=== PATIENT | female | born 1970 | race Caucasian/White ===

== ENCOUNTER 2021-12-08 11:15 | Outpatient (REF) | payer OTHER, SELFPAY ==
--- OUTSIDE RECORDS SUMMARY | 2021-12-08 11:19 | XMS_ITS | Clinical Summary ---
:1970 Author Organization [employer] [place] [address] Care Team Providers Name Role Phone Kiara Hurley MD Unavailable Maksim Sanford MD Primary Care Provider [phone] Allergies Active Allergy Reactions Severity Noted Date Comments Amoxicillin Rash 06/10/2009 Amoxicillin Hives 08/17/2013 Paroxetine Hcl *Unknown, Other - Describe 2009 In Comment Field Sertraline *Unknown, Other - Describe 2009 In Comment Field Dulaglutide Other - Describe In 09/27/2020 Nausea, diarrhea. Comment Field Zolpidem Other - Describe In 10/09/2021 Headache , didn't feel Comment Field , peterson. Medications Medication Sig Dispensed Refills Start End Status Date Date blood sugar diagnostic Test 3 times per 400 Each 12/08/19 Active (Blood Glucose Test) day. 21 stripIndications: Type 2 diabetes mellitus without complication, with long-term current use of insulin (HC) BD Insulin Syringe For 100 Each 3 05/04/19 A ctive Ultra-Fine 1 mL 31 administering 22 gauge x insulin at home. 07/10Indications: Type 2 diabetes mellitus without complication, with long-term current use of insulin (HC) metFORMIN (GLUCOPHAGE Two oral daily 360 Tablet 1 08/02/19 Active XR) 500 mg for one week, 22 Extended-Release then two twice tabletIndications: daily. Type 2 diabetes mellitus without complication, with long-term current use of insulin (HC) atenoloL (TENORMIN) Take 1 Tablet 90 Tablet 3 09/13/19 Active 100 mg (100 mg) by 22 tabletIndications: mouth once Essential hypertension daily. lisinopriL (PRINIVIL; Take 1 Tablet 90 Tablet 3 10/05/19 Active ZESTRIL) 40 mg (40 mg) by mouth 22 tabletIndications: once daily. Essential hypertension ondansetron (ZOFRAN Place 1 Tablet 30 Tablet 0 10/09/19 Active ODT) 4 mg (4 mg) on the 22 disintegrating tongue every 8 tabletIndications: hours if needed Nausea and vomiting, for unspecified vomiting Nausea/Vomiting. type estradioL (Estrace) Take 1 Tablet 90 Tablet 3 10/25/19 Active 0.5 mg (0.5 mg) by 22 tabletIndications: Hot mouth once flushes, daily. perimenopausal medroxyPROGESTERone Take 1 Tablet (5 90 Tablet 3 10/25/19 Active (Provera) 5 mg mg) by mouth 22 tabletIndications: Hot once daily. flushes, perimenopausal insulin glargine, Inject 14 units 10 mL 1 11/08/19 Active U-100, (Lantus U-100 subcutaneous 22 Insulin) 100 unit/mL before bedtime. injectionIndications: Type 2 diabetes mellitus without complication, with long-term current use of insulin (HC) mirtazapine (REMERON Place 1 Tablet 30 Tablet 5 11/14/19 Active SOLTAB) 45 mg (45 mg) on the 22 disintegrating tongue at tabletIndications: bedtime. Depression, unspecified depression type polyethylene Drink 2L the day 4000 mL 0 11/17/19 Active glycol-electrolyte before the 22 (GOLYTELY) procedure and 2L [id number] -5.86 4 hours before gram the procedure. suspensionIndications: Encounter for screening colonoscopy polyethylene Drink 7 liters 8000 mL 0 11/25/19 Ac tive glycol-electrolyte the day before 22 (GOLYTELY) procedure (until [id number] -5.86 no liquid or gram solid stool is suspensionIndications: seen) and drink Encounter for 1 liter 6 hours screening colonoscopy before colonoscopy appointment Semglcaity,insulin INJECT 14 UNITS 0 11/09/19 Active glargine-yfgn, 100 UNDER THE SKIN 22 unit/mL injection AT BEDTIME OLANzapine (ZYPREXA) Take 1 Tablet 30 Tablet 1 12/05/19 Active 7.5 mg (7.5 mg) by 22 tabletIndications: mouth at Insomnia, unspecified bedtime. type LORazepam (ATIVAN) 1 One oral at 5 Tablet 0 10/10/1911/12/ Discontinued mg tabletIndications: bedtime. 2021 (*Medication Insomnia, idiopathic adjustment) estradiol-norethindron Apply 1 Patch on 8 Patch 12 10/20/1912/04/ Discontinued e, 0.05-0.14 mg, dry, clean, 2021 ( *Patient (COMBIPATCH) 0.05-0.14 hairless skin states no mg/24 hr every Saturday and patchIndications: . albino quinones/Jovani on Perimenopause, [facility]) mirtazapine (REMERON) Take 1 Tablet 30 Tablet 5 10/21/1911/25 0/ Discontinued 30 mg (30 mg) by mouth 2021 (*M edication tabletIndications: at bedtime. adjustment) Depression, Start after one unspecified depression week of three type 7.5mg tabs daily. OLANzapine (ZYPREXA) 5 0.5-1 tablet at 30 Tablet 0 11/02/19 0 11/13/ Discontinued mg tabletIndications: bedtime. 2021 (Reorder Insomnia, unspecified (E-cancel not type sent)) OLANzapine (ZYPREXA) 5 1 tablet p.o. 45 Tablet 2 11/14/19/ Discontinued mg tabletIndications: nightly for 1 2021 (Reorder Insomnia, unspecified week, then 1.5 (E-cancel not type tablets p.o. sent)) nightly Active Problems Problem Noted Date Menopause syndrome 12/07/2021 Insomnia, idiopathic 12/04/2021 Anxiety and depression 10/27/2020 Type 2 diabetes mellitus without complication, with lo ng-term current use 09/27/2020 of insulin Obesity 09/27/2020 Essential hypertension 09/27/2020 PCOS (polycystic ovarian syndrome) GERD (gastroesophageal reflux disease) Resolved Problems Problem Noted Date Resolved Date Anxiety 09/27/2020 10/27/2020 Idiopathic thrombocytopenic purpura 09/27/20200 08/2021 S/P right knee arthroscopy 01/09/2019 09/27/2020 Pes anserinus bursitis of right knee 12/30/201804/2020 Chronic pain of right knee 12/22/2018 09/27/2020 Degenerative tear of medial meniscus of right knee 9 09/27/2020 Right knee pain 09/19/2018 09/27/2020 Arthritis of right knee 09/19/2018 09/27/2020 Effusion, right knee 09/19/2018 09/27/2020 Chondromalacia, patella, right 09/19/2018 Encounters Date Type Specialty Care Team Description 12/07/2021 Travel 12/07/2021 Telephone Pan Hsu MD Appointment 12/06/2021 Nurse/Clinic Staff Testing ( HST Only Download) 12/05/2021 Nurse/Clinic Staff Testing ( HST Setup) Only 12/05/2021 Telemedicine [facility] Becky 12/05/2021 Procedure Only Pan Hsu MD Results (H OME SLEEP TEST/) 12/04/2021 Office Visit Maksim Sanford Follow Up MD Doris 12/04/2021 Office Visit Giovanna Medeiros [facility] th Intake; KIRSTEN De La Cruz Medication Daniela haynes 12/04/2021 Travel 12/02/2021 Travel 12/01/2021 Telephone Pan Hsu MD Appointment (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) 11/30/2021 Telemedicine Pan Hsu MD 11/30/2021 Travel 11/26/2021 Travel 11/24/2021 Procedure Only Ottoniel Robles MD (colonoscopy) 11/24/2021 Telephone Shoshana Elam PA 11/23/2021 Nurse Triage Ottoniel Robles Medication Markos Mckinley MD 11/23/2021 Travel 11/20/2021 Telephone Keri Cuenca Appointm ent MD Becky 11/16/2021 Telephone Ottoniel Robles MD 11/11/2021 - Emergency Kavon Neal Depression, unspecified depression type (Primary Dx); 11/12/2021 MD Belkis Insomnia, unspecified type Dionne Mosqueda MD 11/11/2021 Travel 11/08/2021 Phone Office Visit Maksim Sanford Covid -19 Positive MD Doris Result (/) 11/08/2021 Telephone Maksim Sanford Prior Autho rization MD Doris (insulin glargi ne, U-100, (Lantus U-100 Insulin) 100 un it/mL injection DENIE D/ EXCLUSION) 11/07/2021 [facility] Neema Santana [employer]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 has some questions- want to get tested f or menopause- slee p issue, emotiona l, sweating- spot on the labia that she would like to have ch ecked out.) 10/18/2021 Travel 10/16/2021 Travel 10/15/2021 Travel 10/13/2021 Emergency David Andrade Insomnia , unspecified type (Primary Dx); [place] Jordan Depression, uns pecified depression type; Anxiety 10/13/2021 Travel 10/13/2021 Telephone Maksim Sanford Questions ( Insomnia) MD Doris 10/11/2021 Telephone Maksim Sanford Medication Management MD Doris 10/11/2021 Telephone Maksim Sanford Questions ( sleeping) MD Doris 10/09/2021 Ancillary Procedure 10/09/2021 Office Visit Maksim Sanford ER Follow u p (PAWANDoris MD 10/01 and 10/08, insomnia, malai se, constipation, n ausea) 10/08/2021 Emergency Andrew Gaspar Insomnia, uns pecified type (Primary Dx); MD Mono Restlessness; Hyperglycemia; Dehydration; Nausea and vomi ting, unspecified vomiting type; Abnormal urinal ysis 10/08/2021 Travel 10/05/2021 Travel 10/04/2021 Office Visit Fernando Clinton Depression (i nsomnia) MD Samm 10/04/2021 Office Visit No Show 10/04/2021 Travel 10/04/2021 Nurse Triage Maksim Sanford Fatigue MD Doris 10/04/2021 Refill Maksim Sanford Refill Requ est MD Doris (Lisinopril 40m g) 10/01/2021 Emergency Esa Garnica Insomnia, unsp ecified type (Primary Dx); DO Jermaine Malaise; Constipation, u nspecified constipation type; At risk for obs tructive sleep apnea 10/01/2021 Travel 09/25/2021 Refill Maksim Sanford Refill Requ est MD Doris (Glipizide er 2 .5mg) 09/18/2021 Refill Maksim Sanford Refill Requ est; MD Doris LISINOPRIL 09/12/2021 Ancillary Procedure 09/12/2021 Office Visit Maksim Sanford Physical (5 0 year MD Doris old); Follow Up (Diabetes) 09/12/2021 Travel 09/10/2021 Travel from Last 3 Months Immunizations Name Administration Dates Next Due COVID-19 vaccine ([facility] 01/24/2021 30mcg/0.3mL) PF, MDV Influenza Virus, Unspecified 12/02/2013, 12/10/2012, 011 Influenza, IIV3 (Age >=3 years) 12/19/2011, 12/01/2009, 09/2008, 12/24/2007, 12/18/2006, 01/15/2006 Influenza, IIV4 12/04/2021, 11/19/2020, 11/04/2019, 12/04/2018, 11/27/2017, 12/14/2016, 12/16/2015 Influenza, IIV4 (=>6mos) MDV 12/08/2014 Pneumococcal Poly,23-Valent 02/05/2020, 12/23/2013 (Pneumovax) Pneumococcal conj 13-Valent (Prevnar 12/08/2014 13) Td (Age >=7 Years) 06/19/2017 Tdap 10/27/2020, 01/07/2008 Zoster (Shingrix-RZV, recombinant) 09/12/2021 Family History Medical History Relation Name Comments Diabetes type II Brother Diabetes type II Father Heart Disease Father valve replaced Diabetes type II Maternal Grandmother Cancer-colon Paternal Grandmother Diabetes type II Paternal Grandmother Cancer-colon Paternal Uncle Diabetes type II Sister Cancer-breast No Family History Cancer-ovarian No Family History Heart attack No Family History Relation Name Status Comments Brother Father Maternal Grandmother Paternal Grandmother Paternal Uncle Sister Social History Tobacco Use Types Packs/Day Years Used Date Never Smoker Smokeless Tobacco: Never Used Tobacco Cessation: Counseling Given: Yes Alcohol Use Standard Drinks/Week Comments Yes 0 (1 standard drink = 0.6 oz pure alcoho l) Few times a year Alcohol Habits Answer Date Recorded How often do you have a drink containing alcohol? Not asked How many drinks containing alcohol do you have on a Not aske d typical day when you are drinking? How often do you have six or more drinks on one Not asked occasion? Comment: Few times a year 08/17/2013 Sex Assigned at Date Recorded Not on file COVID-19 Exposure Response Date Recorded In the last 10 days, have you been in contact with No / Unsu re 12/07/2021 8:15 PM CDT someone who was confirmed or suspected to have Coronavirus/COVID-19? Obstetrics History Last Filed Vital Signs Vital Sign Reading Time Taken Comments Blood Pressure 124/81 12/04/2021 2:59 PM CDT Pulse 52 12/04/2021 2:59 PM CDT Temperature 36.7 ??C (98 ??F) 11/07/2021 8:02 AM CDT Respiratory Rate 18 11/12/2021 1:00 AM CDT Oxygen Saturation 98% 12/04/2021 2:59 PM CDT Inhaled Oxygen Concentration - - Weight 91.9 kg (202 lb 9.6 oz) 12/04/2021 2:59 PM CDT Height 165.1 cm (5' 5) 11/11/2021 6:27 PM CDT Body Mass Index 33.71 11/11/2021 6:27 PM CDT Plan of Treatment Upcoming Encounters Date Type Specialty Care Team Description 12/11/2021 Procedure Only Ottoniel Robles MD [address] [place] [phone] (Wo rk) 12/19/2021 Orders Only [facility] [employer] 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 [employer]er 12/28/2021 Nurse/Clinic Staff Only 12/29/2021 Nurse/Clinic Staff Only 01/22/2022 Telemedicine Pan Hsu MD [address] [phone] (Wo rk) 01/23/2022 Office Visit Giovanna Medeiros NP [address] [phone] (Wo rk) Health Maintenance Due Date Last Done Comments Hepatitis B series for Diabetes (1 08/02/1990 of 3 - Risk 3-dose series) Pap test for age 21-65 08/02/1992 Colonoscopy through age 75 08/02/2016 COVID-19 vaccine series (4 - 03/21/2021 01/24/2021, 021, Booster for Pfizer series) 06/09/2020 Zoster (shingles) series for age 0911/07/2021 09/12/2021 50+ (2 of 2) Mammogram for age 45-75 09/12/2022 09/12/2021 BMI (ht and wt on same day) for 10/09/2022 10/09/2021, 09/25, age 18+ 09/12/2021, Additional history exists Depression screening for age 12+ 12/07/2022 12/07/2021, 01/2022, 12/05/2021, Additional history exists Lipids for age 45-75 07/21/2026 07/21/2021 Tetanus booster 10/27/2030 10/27/2020, 06/19/2017, 01/07/2008 Pneumococcal series for age 19-64 08/02/2036 02/05/2020, , (3 - PPSV23 or PCV20) 12/23/2013 Tdap Completed 10/27/2020, 01/07/2008 Hepatitis C screening for age Completed 11/01/2021 18-79 Influenza for age 50-64 Completed 12/04/2021, 11/19/2020, 11/04/2019, Additional history exists Procedures Procedure Name Priority Date/Time Associated Diagnosis Comme nts HOME SLEEP TEST TYPE Routine 12/05/2021 2:06 PM CECIL (obstructi ve 3 PORTABLE CDT sleep apnea) HEMOGLOBIN A1C Routine 11/01/2021 7:58 AM Type 2 diabetes Resu lts for this CDT mellitus without procedure a re in complication, with the resul ts long-term current section. use of insulin (HC) TSH WITH REFLEX Routine 11/01/2021 7:58 AM Fatigue, unspecifie d Results for this CDT type procedure are i n the results section. ANTI HCV Routine 11/01/2021 7:58 AM Need for hepatitis C R esults for this CDT screening test procedure are in the results section. US ABDOMEN LIMITED Routine 10/19/2021 9:28 AM Nausea Res ults for this RUQ CDT procedure are i n the results section. CT HEAD BRAIN WO MONIKA 10/09/2021 12:43 Nausea Results for this PM CDT procedure are i n the results section. COVID 19 STAT 10/08/2021 9:34 PM Results f or this CDT procedure are i n the results section. COVID 19 COLLECTION STAT 10/08/2021 9:34 PM Re sults for this CDT procedure are i n the results section. URINE CULTURE Today 10/08/2021 9:25 PM Abnormal urinalysis R esults for this CDT procedure are i n the results section. URINALYSIS STAT 10/08/2021 9:25 PM Results f or this MICROSCOPIC CDT procedure are i n the results section. URINE STAT 10/08/2021 9:25 PM Result s for this CDT procedure are i n the results section. UA W/ SEDIMENT EXAM STAT 10/08/2021 9:25 PM Re sults for this REFLEXED PER CRITERIA CDT proced ure are in the results section. VITAMIN B12 MONIKA 10/08/2021 9:02 PM Results f or this CDT procedure are i n the results section. MAGNESIUM MONIKA 10/08/2021 9:02 PM Results f or this CDT procedure are i n the results section. CBC WITH AUTO STAT 10/08/2021 9:02 PM Results for this DIFFERENTIAL CDT procedure are i n the results section. LIPASE STAT 10/08/2021 9:02 PM Results f or this CDT procedure are i n the results section. HEPATIC FUNCTION STAT 10/08/2021 9:02 PM Resul ts for this PANEL CDT procedure are i n the results section. BASIC METABOLIC PANEL STAT 10/08/2021 9:02 PM Results for this CDT procedure are i n the results section. CBC WITH AUTO STAT 10/08/2021 9:02 PM Results for this DIFFERENTIAL CDT procedure are i n the results section. EKG 12 LEAD STAT 10/08/2021 8:47 PM Results f or this CDT procedure are i n the results section. CBC WITH AUTO STAT 10/01/2021 6:46 AM Results for this DIFFERENTIAL CDT procedure are i n the results section. COMP METABOLIC PANEL STAT 10/01/2021 6:46 AM R esults for this CDT procedure are i n the results section. CBC WITH AUTO STAT 10/01/2021 6:46 AM Results for this DIFFERENTIAL CDT procedure are i n the results section. TSH STAT 10/01/2021 6:46 AM Results f or this CDT procedure are i n the results section. EKG 12 LEAD STAT 10/01/2021 6:33 AM Results f or this CDT procedure are i n the results section. GLUCOSE METER Routine 10/01/2021 6:26 AM Results for this CDT procedure are i n the results section. XR MAMMO BILAT Routine 09/12/2021 10:47 Visit for screening Re sults for this SCREENING AM CDT mammogram procedure are i n the results section. from Last 3 Months Results TSH WITH REFLEX (11/01/2021 7:58 AM CDT) P athologist Signature TSH 3.39 0.35 - 4.94 11/01/2021 [facility] uIU/mL 7:14 PM CDT LABORATORY-CENTR AL LABORATORY Specimen Anatomical Collection Method / Collection Time Recei robert Time (Source) Location / Volume Laterality Blood BLOOD SPECIMEN / Venipuncture / 11/01/2021 7:58 2021 8:00 Unknown Unknown AM CDT AM CDT Narrative [facility] LABORATORY-CENTRAL LABORAT ORY - 11/01/2021 7:14 PM CDT In Adults, TSH values between 5.00 and 10.00 uIU/ml do not necessarily indicate the presence of Hyp othyroidism. Correlation with clinical findings such as presence of goiter and/or Thyroperoxidase (TPO) Antibody ma y be helpful. For more information please refer to ESTEBAN 20 ; 291: [id number]. Maksim Sanford MD CHEMISTRY Performing Organization Address City/[facility]/ZIP Code Phon e Number [facility] [employer] [address] [place] [id number] LABORATORY-CENTRAL 2000 LABORATORY ANTI HCV (11/01/2021 7:58 AM CDT) [facility] Method Time Signature HEPATITIS C Non-Reacti Non-Reacti 11/01/2021 [facility] ANTIBODY ve ve 7:16 PM CDT LABORATORY-[facility] TRAL LABORATORY Comment: Antibodies to HCV not detected; does not exclude the possibility of exposure to HCV. Specimen Anatomical Collection Method / Collection Time Recei robert Time (Source) Location / Volume Laterality Blood BLOOD SPECIMEN / Venipuncture / 11/01/2021 7:58 2021 8:00 Unknown Unknown AM CDT AM CDT Maksim Sanford MD SEND OUTS Performing Organization Address City/[facility] Phon e Number [facility] [address] [place] [id number] LABORATORY-CENTRAL 2000 LABORATORY HEMOGLOBIN A1C MONITORING (POCT) (11/01/2021 7:58 AM CDT) P athologist Signature HEMOGLOBIN A1C 6.0 <=6.4 % 11/01/2021 [facility] MONITORING 8:31 AM CDT [facility] (POCT[facility] Specimen Anatomical Collection Method / Collection Time Recei robert Time (Source) Location / Volume Laterality Blood BLOOD SPECIMEN / Venipuncture / 11/01/2021 7:58 2021 8:00 Unknown Unknown AM CDT AM CDT Narrative [facility] - 8:31 AM CDT ? (<=6.9%) ? Indicates good control ? (7.0% to 7.9%) ? Indicates fa ir control ? (>=8.0%) ? Indicates poor control ?? NOTE: ??These thresholds are guideli claudy and ?individual targets may va ry. Falsely low levels may be seen with: Recent Transfusion, Recent Significant B lood Loss, Hemolytic Diseases, or Falsely elevated levels may be seen with : Untreated Anemias, Splenectomy ? Maksim Sanford MD CHEMISTRY Performing Organization Address City/State/ZIP Code Phon e Number [facility] [address] [place], [place] [address] US ABDOMEN LIMITED RUQ (10/19/2021 9:28 AM CDT) Anatomical Region Laterality Modality Abdomen, LIVER Ultrasound Specimen (Source) Anatomical Collection Method Collection Time Re ceived Time Location / / Volume Laterality 10/19/2021 3:34 PM CDT Impressions 10/19/2021 3:34 PM CDT Improved appearance of the liver compared to the prior study with decreased hepatic steatosis. Normal ultrasound of the gallbladder. Tiny punctate stones within the right ki dney are likely similar. No hydronephrosis. Incidental right renal cyst. Dictated by Evan Love MD @ Oct 19 ??3:34PM (Electronically Signed) ?? Narrative 10/19/2021 3:34 PM CDT For Patients: ??As a result of the 21st Century Cures Act, medical imaging exams and procedure report s are released immediately into your [facility] medical record. ??You may view this report before your referring provider. ??If you have questions, please contact your health care provider. INDICATION: Nausea COMPARISON: CT 09/04/2020 TECHNIQUE: Real time muñoz scale imaging and color D oppler analysis was performed of the right upper quadrant. FINDINGS: The patient`s liver is of normal size an d has uniform echogenicity. ??There is a normal appearance of the hepatic IVC and proximal abdominal aorta. There is no evidence of ascites. The gallbladder is of normal size and there is no evidence of intraluminal stones or sludge. ??The gallbladder wall measures 1.5 mm in thickness. ??The common bile duct is of normal size and measures 6.5 mm in diameter at t he level of the john hepatis. ??The nye creas appears normal. Tiny punctate stones are suspected within the right kidney, as before. Simple cyst within the right kidney is unchanged measuring 2.1 x 2.1 x 1.8 cm. The right kidney measures 11.7 cm in length. ?? Procedure Note Evan Love MD - 10/19/2021For matting of this note might be different from the original. For Patients: As a result of the ntury Cures Act, medical imaging exams and procedure reports are released immediately into your electronic medical record. You may view this report before your referring provider. If you have questions, please contact [facility] care provider. INDICATION: Nausea COMPARISON: CT 09/04/2020 TECHNIQUE: Real time muñoz scale imaging and color D oppler analysis was performed of the right upper quadrant. FINDINGS: The patient`s liver is of normal size an d has uniform echogenicity. There is a normal appearance of the hepatic IVC and proximal abdominal aorta. There is no evidence of ascites. The gallbladder is of normal size and there is no evidence of intraluminal sto claudy or sludge. The gallbladder wall measures 1.5 mm in thickness. The common bile duct is of normal size and measures 6.5 mm in diameter at the level of the john hepatis. The pancreas appears normal. Tiny punctate s tones are suspected within the right kidney, as before. Simple cyst within the right kidney is unchanged measuring 2.1 x 2.1 x 1.8 cm. The right kidney measures 11.7 cm in length. IMPRESSION: Improved appearance of the liver compare d to the prior study with decreased hepatic steatosis. Normal ultrasound of the gallbladder. Tiny punctate stones within the right ki dney are likely similar. No hydronephrosis. Incidental right renal cyst. Dictated by Evan Love MD @ Oct 19 2 022 3:34PM (Electronically Signed) Maksim Sanford MD US CT HEAD BRAIN WO (10/09/2021 12:43 PM CDT) Anatomical Region Laterality Modality HEAD, BRAIN Computed Tomography Specimen (Source) Anatomical Collection Method Collection Time Re ceived Time Location / / Volume Laterality 10/09/2021 1:33 PM CDT Impressions 10/09/2021 1:[address] Negative head CT. Please note that all CT scans at this [facility] use dose modulation, iterative reconstruction, and/or weight-based dosing when appropriate to reduce radiation dose to as low as reasonably achievable. Dictated by Evan Love MD @ Oct 09 2 022 ??1:33PM (Electronically Signed) ?? Narrative 10/09/2021 1:33 PM CDT For Patients: ??As a result of the Cures Act, medical imaging exams and procedure report s are released immediately into your [facility] medical record. ??You may view this report before your referring provider. ??If you have questions, please contact your health care provider. INDICATION: Nausea COMPARISON: none TECHNIQUE: A CT volumetric acquisition was performe d of the brain without IV contrast. Please note that all CT scans at this [facility] use dose modulation, iterative reconstruction, and/or weight-based dosing when appropriate to reduce radiation dose to as low as reasonably achievable. FINDINGS: The CT images reveal a normal appearance of the cerebral ventricles and basal cisterns. There is no evidence of intracranial hemorrhage, tissue infarction or mass effect. The mastoid air cells and middl e ear cavities are clear. The calvarium appears intact. There is normal aeration of the visualized paranasal sinuses. Procedure Note Evan Love MD - 10/09/2021For matting of this note might be different from the original. For Patients: As a result of the [facility] Cures Act, medical imaging exams and procedure reports are released immediately into your electronic medical record. You may view this report before your referring provider. If you have questions, please contact yo health care provider. INDICATION: Nausea COMPARISON: none TECHNIQUE: A CT volumetric acquisition was performe d of the brain without IV contrast. Please note that all CT scans at this [facility] use dose modulation, iterative reconstruction, and/or weight-based dosing when appropriate to reduce radiation dose to as low as reasonably achievable. FINDINGS: The CT images reveal a normal appearance of the cerebral ventricles and basal cisterns. There is no evidence of intracranial hemorrhage, tissue infarction or mass effect. The mastoid air cells and middle ear cavities are clear. The calvarium appears intact. There is normal aeration of the visualized paranasal sinuses. IMPRESSION: Negative head CT. Please note that all CT scans at this [facility] use dose modulation, iterative reconstruction, and/or weight-based dosing when appropriate to reduce radiation dose to as low as reasonably achievable. Dictated by Evan Love MD @ Oct 09 2 022 1:33PM (Electronically Signed) Maksim Sanford MD CT COVID 19 (10/08/2021 9:34 PM CDT) [facility] trivago Method Time Signature COVID 19 Not detected Not detected 10/08/2021 [facility] 9[facility]56 PM CDT [facility] Specimen Anatomical Location / Collection Method Collection Chris e Received Time (Source) Laterality / Volume Other SPECIMEN FROM Non-Blood / 10/08/2021 9:34 10/08/2021 9:34 NASOPHARYNGEAL Unknown PM CDT PM CDT STRUCTURE / Unknown Narrative [facility] - 9:56 PM CDT This test has been authorized by FDA und er an Emergency Use Authorization (EUA). This test is only authorized for the duration of time the declaration that circumstances exist justifying the authorization of th e emergency use of in vitro diagnostic tests for detection of SARS-CoV-2 virus and/or diagnosis of COVID-19 infection under section 564(b)(1) of the Act, 21 U.S.C. 360bbb-3(b) (1), unless the authorization is terminated or revoked sooner. Andrew Gaspar MD MICROBIOLOGY Performing Organization Address City/State/ZIP Code Phon e Number [facility] [address] [place] [address] COVID 19 COLLECTION (10/08/2021 9:34 PM CDT) [facility] trivago Method Time Signature TESTING [facility] 10/08/2021 [facility] [facility] Laboratory 9:35 PM CDT [facility] Comment: Specimen submitted to [facility] for testing. Specimen Anatomical Location / Collection Method Collection Chris e Received Time (Source) Laterality / Volume Other SPECIMEN FROM Non-Blood / 10/08/2021 9:34 10/08/2021 9:34 NASOPHARYNGEAL Unknown PM CDT PM CDT STRUCTURE / Unknown Andrew Gaspar MD SEND OUTS Performing Organization Address City/[facility]/ZIP Code Phon e Number [facility] [address] [place] [address] (ABNORMAL) URINALYSIS MICROSCOPIC (10/08/2021 9:25 PM CDT) [facility] Signature RBC 0-2 0-2, None 10/08/2021 [place] Seen /HPF 9:39 PM [facility] WBC 6-10 (A) 0-2, 3-5, 10/08/2021 [place] None Seen 9:39 PM CDT [facility] /HPF LABORATORY BACTERIA Moderate (A) None 10/08/2021 [place] Seen, 9:39 PM [facility]T [facility] Rare, Few LABORATORY Bacteria/ HPF EPITHELIAL Many (A) None 10/08/2021 [facility], Few 9:[address] [facility] Epi/HPF LABORATORY Mucus Present 10/08/2021 [place] 9:39 PM [facility] LABOR[facility]ORY WHITE CELL Present (A) (none) 10/08/2021 [facility]:[address] [facility] Specimen Anatomical Collection Method Collection Time Receive d Time (Source) Location / / Volume Laterality Urine URINE SPECIMEN / Non-Blood / 10/08/2021 9:25 PM 10/08 9:30 Unknown Unknown CDT PM CDT Andrew Gaspar MD URINE Performing Organization Address City/[facility]/ZIP Code Phon e Number [facility] [address] [place] [address] URINE CULTURE (10/08/2021 9:25 PM CDT) athologist Signature CULTURE No growth 10/10/2021 [facility] (<1,000 7:37 AM CDT LABORATORY-CENT CFU/mL) [facility] Specimen Anatomical Collection Method Collection Time Receive d Time (Source) Location / / Volume Laterality Urine URINE SPECIMEN / Non-Blood / 10/08/2021 9:25 PM 10/08 9:30 Unknown Unknown CDT PM CDT Maksim Sanford MD MICROBIOLOGY Performing Organization Address City/State/ZIP Code Phon e Number [employer] [address] [place] [address] LABORATORY-CENTRAL 2000 LABORATORY (ABNORMAL) UA W/ SEDIMENT EXAM REFLEXED PER CRITERIA (10/08/2021 9:25 PM CDT) [facility] Method Time Signature COLOR Yellow Yellow Color 10/08/2021 [place] 9:34 PM [facility] CLARITY Clear Clear 10/08/2021 [place] Clarity 9:34 PM [facility] SPECIFIC 1.010 1.010, 10/08/2021 [place] GRAVITY,URINE 1.015, 9:34 PM [facility] 1.020, 1.025 LABORATORY PH,URINE 6.5 6.0, 7.0, 10/08/2021 [place] 8.0, 5.5, 9:34 PM [facility] 6.5, 7.5, LABORATORY 8.5 UROBILINOGEN, Normal Normal EU/dl 10/08/2021 [place] QUALITATIVE 9:34 PM [facility] PROTEIN, Negative Negative 10/08/2021 [place] URINE mg/dL 9:34 PM [facility] GLUCOSE, Negative Negative 10/08/2021 [place] URINE mg/dL 9:34 PM [facility] KETONES,URINE Negative Negative 10/08/2021 [place] mg/dL 9:34 PM [facility] BILIRUBIN,URI Negative Negative 10/08/2021 [place] NE 9:34 PM [facility] OCCULT Negative Negative 10/08/2021 [place] BLOOD,URINE 9:34 PM [facility] NITRITE Negative Negative 10/08/2021 [place] 9:34 PM [facility] LEUKOCYTE Small (A) Negative 10/08/2021 [place] ESTERASE 9:34 PM [facility] Specimen Anatomical Collection Method Collection Time Receive d Time (Source) Location / / Volume Laterality Urine URINE SPECIMEN / Non-Blood / 10/08/2021 9:25 PM 10/08 9:30 Unknown Unknown CDT PM CDT Andrew Gaspar MD URINE Performing Organization Address City/State/ZIP Code Phon e Number [facility] [address] [place] [address] URINE (10/08/2021 9:25 PM CDT) Analysis Performed At [facility] logist Time Signature ,URIN Negative Negative 10/08/2021 [place] E 9:34 PM [facility] Specimen Anatomical Collection Method Collection Time Receive d Time (Source) Location / / Volume Laterality Urine URINE SPECIMEN / Non-Blood / 10/08/2021 9:25 PM 10/08 9:30 Unknown Unknown CDT PM CDT Andrew Gaspar MD URINE Performing Organization Address City/State/ZIP Code Phon e Number [facility] [address] [place] [address] (ABNORMAL) CBC WITH AUTO DIFFERENTIAL (10/08/2021 9:02 PM CDT)Only the most recent of2 resultswithin the time period is included. [facility] gist Method Time Signature WHITE BLOOD 13.0 (H) 4.5 - 10/08/2021 [place] COUNT 11.0 9:17 PM [facility] thou/cu LABORATORY mm RED BLOOD COUNT 4.72 4.00 - 10/08/2021 [place] 5.20 9:17 PM [facility] mil/cu mm LABORATORY HEMOGLOBIN 14.9 12.0 - 10/08/2021 [place] 16.0 g/dL 9:17 PM [facility] LABORATORY HEMATOCRIT 45.1 33.0 - 10/08/2021 [place] 51.0 % 9:17 PM [facility] LABORATORY MCV 96 80 - 100 10/08/2021 [place] fL 9:17 PM [facility] LABORATORY MCH 31.6 26.0 - 10/08/2021 [place] 34.0 pg 9:17 PM [facility] LAB[facility]ORY MCHC 33.0 32.0 - 10/08/2021 [place] 36.0 g/dL 9:17 PM [facility] LABORATORY RDW 13.9 11.5 - 10/08/2021 [place] 15.5 % 9:17 PM [facility] LABORATORY PLATELET COUNT 275 140 - 440 10/08/2021 [place] thou/cu 9:17 PM [facility] mm LABORATORY MPV 11.0 6.5 - 10/08/2021 [place] 11.0 fL 9:17 PM [facility] LABORATORY % NEUT 48.3 % 10/08/2021 [place] 9:17 PM [facility] LABORATORY % LYMPH 36.6 % 10/08/2021 [place] 9:17 PM [facility] LABORATORY % MONO 9.6 % 10/08/2021 [place] 9:17 PM [facility]ORY % EOS 4.8 % 10/08/2021 [place] 9:17 PM [facility] LAB[facility]ORY % BASO 0.7 % 10/08/2021 [place] 9:17 PM [facility] LABORATORY ABSOLUTE 6.3 1.7 - 7.0 10/08/2021 [place] NEUTROPHILS thou/cu 9:17 PM [facility] mm LABORATORY ABSOLUTE 4.8 (H) 0.9 - 2.9 10/08/2021 [place] LYMPHOCYTES thou/cu 9:17 PM [facility] mm LABORATORY ABSOLUTE 1.3 (H) <0.9 10/08/2021 [place] MONOCYTES thou/cu 9:17 PM [facility] mm LABORATORY ABSOLUTE 0.6 (H) <0.5 10/08/2021 [place] EOSINOPHILS thou/cu 9:17 PM [facility] LABORATORY ABSOLUTE 0.1 <0.3 10/08/2021 [place] BASOPHILS thou/cu 9:17 PM [facility] mm LABORATORY Specimen Anatomical Collection Method / Collection Time Recei robert Time (Source) Location / Volume Laterality Blood BLOOD SPECIMEN / Venipuncture / 10/08/2021 9:02 2021 9:05 Unknown Unknown PM CDT PM CDT Andrew Gaspar MD HEMATOLOGY Performing Organization Address City/State/ZIP Code Phon e Number [facility] [address] [place] [address] MAGNESIUM (10/08/2021 9:02 PM CDT) P athologist Signature MAGNESIUM 1.8 1.6 - 2.6 10/08/2021 [place] mg/dL 9:27 PM [facility] Specimen Anatomical Collection Method / Collection Time Recei robert Time (Source) Location / Volume Laterality Blood BLOOD SPECIMEN / Venipuncture / 10/08/2021 9:02 2021 9:05 Unknown Unknown PM CDT PM CDT Andrew Gaspar MD CHEMISTRY Performing Organization Address City/[facility]/ZIP Code Phon e Number [facility] [address] [place] [address] LIPASE (10/08/2021 9:02 PM CDT) athologist Signature LIPASE 38.8 8.0 - 78.0 10/08/2021 [place] IU/L 9:28 PM CDT [facility] Specimen Anatomical Collection Method / Collection Time Recei robert Time (Source) Location / Volume Laterality Blood BLOOD SPECIMEN / Venipuncture / 10/08/2021 9:02 2021 9:05 Unknown Unknown PM CDT PM CDT Andrew Gaspar MD CHEMISTRY Performing Organization Address City/[facility]/ZIP Code Phon e Number [facility] [address] [place] [address] VITAMIN B12 (10/08/2021 9:02 PM CDT) athologist Signature VITAMIN B12 805 180 - 914 10/16/2021 [facility] pg/mL 11:38 AM CDT LABORATORY-[facility] Specimen Anatomical Collection Method / Collection Time Recei robert Time (Source) Location / Volume Laterality Blood BLOOD SPECIMEN / Venipuncture / 10/08/2021 9:02 2021 9:05 Unknown Unknown PM CDT PM CDT David DERAS CHEMISTRY Performing Organization Address City/State/ZIP Code Phon e Number [facility] [address] [place] [address] LABORATORY-CENTRAL 2000 LABORATORY HEPATIC FUNCTION PANEL (10/08/2021 9:02 PM CDT) athologist Signature ALBUMIN 3.9 3.5 - 5.2 10/08/2021 [place] g/dL 9:27 PM CDT [facility] PROTEIN,TOTAL 7.2 6.0 - 8.0 10/08/2021 [place] g/dL 9:27 PM [facility] LABORATORY GLOBULIN 3.3 2.0 - 3.7 10/08/2021 [place] g/dL 9:27 PM [facility] LAB[facility]ORY A/G RATIO 1.2 1.0 - 2.0 10/08/2021 [place] 9:27 PM [facility] LABORATORY BILIRUBIN,TOTAL 0.5 0.2 - 1.2 10/08/2021 [place] mg/dL 9:27 PM [facility] LAB[facility]ORY BILIRUBIN,DIRECT 0.2 0.1 - 0.5 10/08/2021 [place] mg/dL 9:27 PM [facility] LAB[facility] BILIRUBIN,INDIRE 0.3 0.2 - 0.8 10/08/[address] [place] [address] mg/dL 9:27 PM [facility] ALK PHOSPHATASE 73 50 - 136 10/08/2021 [place] IU/L 9:27 PM [facility] ALT (SGPT) 24 8 - 45 10/08/2021 [place] IU/L 9:27 PM [facility] AST (SGOT) 19 2 - 40 10/08/2021 [place] IU/L 9:27 PM [facility] Specimen Anatomical Collection Method / Collection Time Recei robert Time (Source) Location / Volume Laterality Blood BLOOD SPECIMEN / Venipuncture / 10/08/2021 9:02 2021 9:05 Unknown Unknown PM CDT PM CDT Andrew Gaspar MD CHEMISTRY Performing Organization Address City/State/ZIP Code Phon e Number [facility] [address] [place] [address] (ABNORMAL) BASIC METABOLIC PANEL (10/08/2021 9:02 PM CDT) Analysis Performed At Patho logist Time Signature SODIUM 140 135 - 145 10/08/2021 [place] mmol/L 9:25 PM [facility] POTASSIUM 3.7 3.5 - 5.0 10/08/2021 [place] mmol/L 9:25 PM [facility] CHLORIDE 104 98 - 110 10/08/2021 [place] mmol/L 9:25 PM [facility] CO2,TOTAL 24 21 - 31 10/08/2021 [place] mmol/L 9:25 PM [facility] ANION GAP 12 5 - 18 10/08/2021 [place] 9:25 PM [facility]ORY GLUCOSE 167 (H) 65 - 100 10/08/2021 [place] mg/dL 9:25 PM [facility] CALCIUM 9.4 8.5 - 10.5 10/08/2021 [place] mg/dL 9:25 PM [facility] BUN 16 8 - 25 10/08/2021 [place] mg/dL 9:25 PM [facility] CREATININE 0.82 0.57 - 10/08/2021 [place] 1.11 mg/dL 9:25 PM [facility] LAB[facility]ATORY BUN/CREAT RATIO 20 10 - 20 [facility] eGFR 87 (L) >90 10/08/2021 [place] mL/min/1.7 9:25 PM [facility] 3m2 LABORATORY Comment: As of 2021, eGFR is calcu lated by the CKD-EPI creatinine equation without race adjustment. eGFR can be inf luenced by muscle mass, exercise, and diet. The reported eGFR is an estimation only and is only applicable if the renal function is stable. Specimen Anatomical Collection Method / Collection Time Recei robert Time (Source) Location / Volume Laterality Blood BLOOD SPECIMEN / Venipuncture / 10/08/2021 9:02 2021 9:05 Unknown Unknown PM CDT PM CDT Andrew Gaspar MD CHEMISTRY Performing Organization Address City/State/ZIP Code Phon e Number [facility] [address] [place] [address] EKG 12 LEAD (10/08/2021 8:47 PM CDT)Only the most recent of2 resultswithin the time period is included. Component Value Ref Range Test Analysis Performed Pathologis t Method Time At Signature Interpretation Normal sinus rhythm BEYON D NOW Left axis deviation Inferior infarct (cited on or before 01-OCT-2021) Cannot rule out Anterior infarct (cited on or before 2021) Abnormal ECG When compared with ECG of 01-OCT-2021 06:33, No significant change was found Ventricular Rate 68 BPM BEYOND NOW Atrial Rate 68 BPM BEYOND NOW P-R Interval 172 ms BEYOND NOW QRS Duration 82 ms BEYOND NOW QT 416 ms BEYOND NOW QTc 442 ms BEYOND NOW P [place] 41 degrees BEYOND NOW R Towson -35 degrees BEYOND NOW T [place] 14 degrees BEYOND NOW Specimen Anatomical Collection Method Collection Time Receive d Time (Source) Location / / Volume Laterality 10/08/2021 8:47 PM 5:44 CDT AM CDT Andrew Gaspar MD EKG ORD Performing Organization Address [facility] Phon e Number BEYOND NOW [place], [place] TSH (10/01/2021 6:46 AM CDT) athologist Signature TSH 2.56 0.35 - 4.94 10/01/2021 [place] uIU/mL 7:30 AM T [facility] Specimen Anatomical Collection Method / Collection Time Recei robert Time (Source) Location / Volume Laterality Blood BLOOD SPECIMEN / Venipuncture / 10/01/2021 6:46 2021 6:49 Unknown Unknown AM CDT AM CDT Narrative [facility] - 7:30 AM CDT In Adults, TSH values between 5.00 and 10.00 uIU/ml do not necessarily indicate the presence of Hyp othyroidism. Correlation with clinical findings such as presence of goiter and/or Thyroperoxidase (TPO) Antibody ma y be helpful. For more information please refer to ESTEBAN 20 ; [phone]: [phone]. Esa Garnica DO CHEMISTRY Performing Organization Address City/[facility] Phon e Number [facility] [address] [place] [address] (ABNORMAL) COMP METABOLIC PANEL (10/01/2021 6:46 AM CDT) [facility] Method Time Signature SODIUM 142 135 - 145 10/01/2021 [place] mmol/L 7:10 AM T [facility] POTASSIUM 4.0 3.5 - 5.0 10/01/2021 [place] mmol/L 7:[address] [facility]ORY CHLORIDE 107 98 - 110 10/01/2021 [place] mmol/L 7:10 AM [facility] CO2,TOTAL 22 21 - 31 10/01/2021 [place] mmol/L 7:10 AM [facility] ANION GAP 13 5 - 18 10/01/2021 [place] 7:10 AM [facility] GLUCOSE 167 (H) 65 - 100 10/01/2021 [place] mg/dL 7:10 AM [facility] CALCIUM 9.3 8.5 - 10.5 10/01/2021 [place] mg/dL 7:10 AM [facility] BUN 15 8 - 25 10/01/2021 [place] mg/dL 7:10 AM [facility] CREATININE 0.74 0.57 - 10/01/2021 [place] 1.11 mg/dL 7:10 AM [facility] BUN/CREAT RATIO 20 10 - 20 10/01/2021 [place] 7:10 AM [facility] ALBUMIN 3.9 3.5 - 5.2 10/01/2021 [place] g/dL 7:10 AM [facility] PROTEIN,TOTAL 7.1 6.0 - 8.0 10/01/2021 [place] g/dL 7:10 AM [facility] GLOBULIN 3.2 2.0 - 3.7 10/01/2021 [place] g/dL 7:10 AM [facility] A/G RATIO 1.2 1.0 - 2.0 10/01/2021 [place] 7:10 AM [facility] BILIRUBIN,TOTAL 1.0 0.2 - 1.2 10/01/2021 [place] mg/dL 7:10 AM [facility] ALK PHOSPHATASE 61 50 - 136 10/01/2021 [place] IU/L 7:10 AM [facility] ALT (SGPT) 23 8 - 45 10/01/2021 [place] IU/L 7:10 AM [facility] AST (SGOT) 17 2 - 40 10/01/2021 [place] IU/L 7:10 AM [facility] eGFR >90 >90 10/01/2021 [place] mL/min/1.7 7:10 AM [facility] 3m2 LABORATORY Comment: As of 2021, eGFR is calcu lated by the CKD-EPI creatinine equation without race adjustment. eGFR can be inf luenced by muscle mass, exercise, and diet. The reported eGFR is an estimation only and is only applicable if the renal function is stable. Specimen Anatomical Collection Method / Collection Time Recei robert Time (Source) Location / Volume Laterality Blood BLOOD SPECIMEN / Venipuncture / 10/01/2021 6:46 2021 6:49 Unknown Unknown AM CDT AM CDT Esa Jjgabe Garnica DO CHEMISTRY Performing Organization Address City/[facility]/ZIP Code Phon e Number [facility] [address] [place] [address] (ABNORMAL) GLUCOSE METER (10/01/2021 6:26 AM CDT) P athologist Signature GLUCOSE METER 180 (H) 65 - 100 10/01/2021 [place] mg/dL 6:[address] [facility] Specimen Anatomical Collection Method Collection Time Receive d Time (Source) Location / / Volume Laterality Blood BLOOD SPECIMEN / 10/01/2021 6:26 AM 10/01 6:30 Unknown CDT AM CDT Esa Brionessuly Garnica DO CHEMISTRY Performing Organization Address City/[facility]/ZIP Code Phon e Number [facility] [address] [place] [address] XR MAMMO BILAT SCREENING (09/12/2021 10:47 AM CDT) Anatomical Region Laterality Modality BREASTS, Breast Left, Breast Right Bilateral Mammo graphy Specimen (Source) Anatomical Location Collection Method / Collectio n Time Received Time / Laterality Volume Impressions 09/12/2021 3:42 PM CDT ??There is no radiographic evidence for malignancy. ??Recommend annual mammograms. MAMMOGRAM ASSESSMENT: ??ACR 1 Negative PATIENTS: You will also receive a letter with your examination results in an easy to read format. ??If you have qu estions about your results, please contact your referring provider. Narrative 09/12/2021 3:42 PM CDT For Patients: As a result of the Century Cures Act, medical imaging exams and procedure reports are released immediately into your electronic medical record. You may view this report before your referring provider. If you have questions, please contact [facility] health care provider. XR MAMMO BILAT SCREENING [[id number]] CLINICAL HISTORY: ??This is an asymptoma tic 51 y.o. patient. INDICATION FOR EXAM: Mammogram Screening . TECHNIQUE: CC & MLO views were obtained. ??This study was evaluated with the assistance of Computer-Aided Detecti on. COMPARISON FILM: Yes 08/16/20 Outside Facility 08/19/19 Outside Facility FINDINGS: ??The breasts have scattered a reas of fibroglandular density. There are no dominant masses, suspicious micro calcifications or areas of architectural distortion. Maksim Sanford MD MAMMO from Last 3 Months Insurance Payer Benefit Plan / Subscriber ID Effective Dates Phone Addre ss Type [employer] [id number] 2011-Present [address] [place] [address] MEDICA MEDICA CHOICE [id number] 2020-Present [address] [address] [place] [address] (Home) [place] [address] [employer] Personal/Family Spouse [phone] (Home) W [phone] Debora CALIXTO (Work) [id number] [facility] Employer 02/26/2000 [facility] (Home) [id number] [address] [address] [place] [address] Advance Directives Latest Code Status on File Code Status Date Activated Date Inactivated Comments Full Code 01/06/2019 11:51 AM 01/06/2019 5:58 PM Code Status Discussion: Discussed Care Teams Mesh Cutter Relationship Specialty Start Date End Date Maksim Sanford MD PCP - General Family Practice 12/07/20 [address] [place] [address] Kiara Hurley MD Family Practice 07/23/13 (work)
--- OUTSIDE RECORDS SUMMARY | 2021-12-08 11:19 | XMS_ITS | Encounter Summary ---
:1970 Author Organization [facility] Address [address], [place] [address] Care Team Providers Name Role Phone Unassigned, Provider Primary Care Provider Unavailable Reason for Visit Reason Comments ANKLE PAIN Encounter Details Date Type Department Care Team Description 04/13/2019 Office Visit TRISamir Mcginnis, Pain, joint, ankle CENTER MD and foot, right [address] [facility] (Primary Dx) [place], [place] [address] [place], [place] [phone] (Wo rk) Social History Tobacco Use Types Packs/Day Years Used Date Smoking Tobacco: Never Assessed Sex Assigned at Date Recorded Not on file documented as of this encounter Progress Notes Samir Freire MD - 04/13/2019 12:00 PM CST NAME: NIMO PRO MR#: [id number] CSN: [id number] AUTHENTICATING CLINICIAN: Samir Freire MD CONFIRM #: [id number] LOC: 711 CLINIC PROGRESS NOTE DATE OF VISIT: 04/13/2019 : 1970 CHIEF COMPLAINT: 2nd opinion regarding right ankle pain. HISTORY OF PRESENT ILLNESS: Ms. Pro is a 48-year-old female, who presents to the clinic today in the company of her forconsultation regarding her right ankle pain. Of note, approximately 10 years ago, the patient underwent a calcaneal bone spur removal with Achilles detachment and reattachment. The patient reports thatshe did well following that surgery with resolution of her symptoms of posterior right ankle pain. Approximately 1-1/2 years ago, the patient reports that she started noticing increasing pain locatedon the posterior aspect of her right ankle. She denies any new trauma or injury to the right ankle. The patient was diagnosed with calcified Achilles tendinitis and underwent many weeks of physical therapy. She reports that she gets some relief from the physical therapy with iontophoresis, but her symptoms returned when she was no longer doing physical therapy. The more activity she does, the more pain she experiences on the posterior aspect of her ankle. The patient is also reporting some stiffnesswithin her calf. The patient does have custom orthotics, but they are currently 10 years old. She received them afterher last surgery. She denies any new symptoms of numbness or tingling in the foot or ankle. CURRENT MEDICAL CONDITIONS: Reviewed in the general medical history intake form and scanned in on the media tab. PREVIOUS SURGERIES: Reviewed in the general medical history intake form and scanned in on the media tab. MEDICATIONS: Reviewed in the general medical history intake form and scanned in on the media tab. ALLERGIES: Reviewed in the general medical history intake form and scanned in on the media tab. 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 She lives with her and 3 children. She denies any history of substance abuse. She does not smoke. She drinks alcohol occasionally. She exercises weekly by doing cardio. She uses her seatbelt always. REVIEW OF SYSTEMS: Glasses, high blood pressure, joint pain, diabetes. FAMILY HISTORY: Father, grandparent, and brother with diabetes. Mother and Father with arthritis. PHYSICAL EXAM: EXTREMITIES: Examination of the right foot and ankle shows mild swelling over the posterior aspect of the right ankle. No ecchymosis, lesions, or rash. There is tenderness to palpation over the attachment of the Achilles tendon onto the calcaneus. Tenderness throughout the posterior aspect of the calcaneus. Tenderness to palpation over the Wendy deformity. Nontender over the posterior process of the talus. Nontender throughout the Achilles tendon itself. Range of motion of the right ankle with approximately 10 degrees of dorsiflexion and 30 degrees of plantar flexion, compared to 15 degrees of dorsiflexion on the left and 30 degrees of plantar flexion on the left. Otherwise, 5/5 strength in dorsi flexion, plantar flexion, inversion, eversion. CMS intact distally. 2+ dorsalis pedis pulse. IMAGING STUDIES: Lateral view of the foot and ankle, along with 2 views of the calcaneus, were obtained from an outside facility and independently reviewed in the office and with the patient and her today. These reveal Wendy deformity. There is calcific bone noted just superior to the calcaneus in the area of the Achilles tendon. Metallic anchors noted within the calcaneus. Joint spaces are well maintained.No acute fractures or dislocations noted. 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 PLAN: I discussed with the patient and her that she is not doing further damage to her foot and ankle when she is having symptoms of pain. Pain is due to inflammation built up from the bone impingingon the Achilles tendon and the bone spurs within the tendon itself. Treatment recommendations movingforward include continued ice and anti-inflammatory medications, along with shoe modification as to not press on the back of the ankle. The patient can continue with physical therapy, but I do agree this will help while she is participating in the physical therapy, but when she stops, her symptoms will likely return. We discussed a definitive approach to her right ankle pain would be to proceed with surgical intervention of a right Achilles debridement with partial calcaneal excision and possible FHL tendon transfer. Prior to proceeding with any type of surgery, I would like to proceed with an MRI of the right ankle to evaluate the condition of her right Achilles tendon. Based on the imaging studies, we will decide if we need to transfer her FHL tendon or not. In the meantime, the patient has no activity restrictions, though she should refrain from repetitivemotions of moving the ankle up and down to decrease inflammation and her symptoms of pain. We did discuss the surgery itself, along with the postoperative course, in detail. Risks of surgery were discussed with the patient which include infection, bleeding, nerve damage, and residual pain. After a lengthy discussion, the patient is interested in proceeding with surgery, though she would like to discuss further with her and her work as to the appropriate timing to proceed with surgery. The patient will call our clinic if she decides to schedule her surgery, where again, we will obtain an MRI of her right ankle prior to surgery. All the patient's questions were answered. She agrees with and understands plan of care. I, Sandy Feldman, am serving as a scribe on Nimo Pro to personally document services performed and statements dictated by Dr. Samir Freire. I, Dr. Samir Freire, was present during the services described in this documentation. I have reviewed the document for accuracy. TT: [address]: 20 minutes. Dictated by: Sandy Feldman PA-C FAP:MEDQ C: R:04/13/19 13:52 CONFIRM#:[id number] L EXPERT documented in this encounter Plan of Treatment Not on filedocumented as of this encounter Visit Diagnoses Diagnosis Pain, joint, ankle and foot, right - Quiana joe documented in this encounter Care Teams Camera Control Operator Relationship Specialty Start Date End Date Unassigned, Provider PCP - General 08/13/[address] [place] [address] documented as of this encounter
--- OUTSIDE RECORDS SUMMARY | 2021-12-08 11:19 | XMS_ITS | Clinical Summary ---
:1970 Author Organization [facility] Address [address], [place] [address] Care Team Providers Name Role Phone Unassigned, Provider Primary Care Provider Unavailable Source Comments You are receiving this document as you are listed as the primary care provider,follow-up provider, or the patient has been referred to you for consultation.This is in compliance with the Medicare and Medicaid EHR Incentive Program,which states Providers who transition their patient to another setting of careor provider of care or refers their patient to another provider of care shouldprovide summarycare record for each transition of care or referral. [facility] Allergies Active Allergy Reactions Severity Noted Date Comments Amoxicillin Hives High 04/13/2019 Medications Medication Sig Dispensed Refills Start Date End Date Status lisinopril Take 40 mg by mouth 0 Active (ZESTRIL) 40 MG daily. tablet atenolol Take 100 mg by mouth 0 Active (TENORMIN) 100 MG daily. tablet metFORMIN Take 1,000 mg by mouth 0 Active (GLUCOPHAGE) 1000 two times a day with MG tablet meals. insulin glargine Inject 10 Units 0 Active (LANTUS) 100 subcutaneously every UNIT/ML injection evening. Social History Tobacco Use Types Packs/Day Years Used Date Smoking Tobacco: Never Assessed Sex Assigned at Date Recorded Not on file Last Filed Vital Signs Vital Sign Reading Time Taken Comments Blood Pressure - - Pulse - - Temperature - - Respiratory Rate - - Oxygen Saturation - - Inhaled Oxygen Concentration - - Weight 106.6 kg (235 lb) 04/17/2019 8:00 AM CARE REP Height 160 cm (5' 3) 04/17/2019 8:00 AM CARE REP Body Mass Index 41.63 04/17/2019 8:00 AM CARE REP Plan of Treatment Health Maintenance Due Date Last Done Comments Colon Cancer Screening Plan 1970 Due Hep C Screening (Preventive 1970 Services) HepB (1) 1970 COVID-19 Vaccine (#1) 02/02/1972 HIV Screening (Preventive 1987 Services) Adult Preventive Visit 08/02/1989 Cervical Cancer Screening 04/09/2013 04/08/2013 Due Mammogram 04/08/2014 04/08/2013 Cholesterol 08/02/2016 DTaP/Tdap/Td (2 - Tdap) 01/06/2018 01/07/2008 Zoster/Shingles (1 of 2) 08/02/2021 Influenza (#1) 2021 11/04/2019, 12/10/2018, 12/04/2018, Additional history exists Pneumococcal Aged Out 02/05/2020, 12/08/2014, No longe r eligible 12/23/2013 based on patient 's age to complete this topic HepA Aged Out No longer eligib le based on patient 's age to complete this topic Hib Aged Out No longer eligib le based on patient 's age to complete this topic IPV (Polio) Aged Out No longer eligib le based on patient 's age to complete this topic MCV4 Aged Out No longer eligib le based on patient 's age to complete this topic Insurance Payer Benefit Plan / Subscriber ID Effective Dates Phone Addre ss Type Group BCBS [place]BS [place] [id number] 2017-Present [address] [address] [employer] [place] [phone] (Home) [place] [id number] NIMO PRO Personal/Family Self [id number] (Home) [place] [id number] TORIN PRO Personal/Family [id number] (Home) [place] [phone] [place] (Work) [phone] Care Teams Senior Network Engineer Relationship Specialty Start Date End Date Unassigned, Provider PCP - General 08/13/[address] [place] [address]
--- OUTSIDE RECORDS SUMMARY | 2021-12-08 11:19 | XMS_ITS | Encounter Summary ---
:1970 Author Organization [facility] Address [address] [address] Care Team Providers Name Role Phone Unassigned, Provider Primary Care Provider Unavailable Reason for Referral Procedure/Equipment (Routine) - Closed Specialty Diagnoses / Procedures Referred By Contact Refer red To Contact Diagnoses Acute right ankle pain Samir Freire MD Procedures MR Ankle Rt WO IV Cont [address] [facility] [place] [address] Referral ID Status Reason Start Date Expiration Date Visits Requ ested Visits Authorized [id number] Closed 04/17/2019 07/16/2020 1 1 ENGINEERING MANAGER Encounter Details Date Type Department Care Team Description 04/17/2019 Notes/Orders [facility] Samir Freire, Acute right ankle CENTER pain (Primary Dx) [address] [facility] [address] [facility] [address] [address] [address] [place] [phone] (Wo rk) Social History Tobacco Use Types Packs/Day Years Used Date Smoking Tobacco: Never Assessed Sex Assigned at Date Recorded Not on file documented as of this encounter Last Filed Vital Signs Vital Sign Reading Time Taken Comments Blood Pressure - - Pulse - - Temperature - - Respiratory Rate - - Oxygen Saturation - - Inhaled Oxygen Concentration - - Weight 106.6 kg (235 lb) 04/17/2019 8:00 AM TEST ENGINEERING MANAGER Height 160 cm (5' 3) 04/17/2019 8:00 AM TEST ENGINEERING MANAGER Body Mass Index 41.63 04/17/2019 8:00 AM TEST ENGINEERING MANAGER documented in this encounter Plan of Treatment Not on filedocumented as of this encounter Results MR Ankle Rt WO IV Cont (08/20/2019 10:01 AM CDT) Anatomical Region Laterality Modality Lower Extremity, Ankle, Foot, Leg, Skeletal, Foot & Right Magnetic Resonance Ankle Specimen (Source) Anatomical Collection Method Collection Time Re ceived Time Location / / Volume Laterality 08/20/2019 9:45 AM CDT Impressions 08/20/2019 10:12 AM CDT TECHNIQUE: ?? Routine MRI of the right ankle was performed without contrast. COMPARISON: ??06/17/2018 FINDINGS: TENDONS: ??Split-thickness interstitial tearing of the peroneus brevis tendon. The tibialis posterior, flexor digitorum and flexor hallucis longus tendons are normal. The tibialis anterior and the visualized extensor tendons are normal. LIGAMENTS: ??The anterior and posterior talofibular ligaments and the calcaneofibular ligament are normal. The anterior and posterior inferior tibiofibular ligaments are normal. The deltoid ligament complex is intact. JOINTS: ??The tibiotalar, talonavicular, calcaneocuboid and subtalar joints are unremarkable without evidence of focal cartilage defect. The sinus tarsi is normal. The talocalcaneal ligament is normal. ACHILLES TENDON/PLANTAR FASCIA: Postsurg ical changes along the posterior aspect of the calcaneus and at the insertion of the Achilles tendon. The Achilles tendon demonstrates scattered areas of low-grad e interstitial tearing which may be post surgical. Small plantar calcaneal enthesophyte with an unremarkable appearance of the plantar fascia. MARROW AND SOFT TISSUES: Marrow signal i s normal. 0.6 x 0.9 x 1.7 cm ganglion along the posterior lateral aspect of the tibiotalar joint. IMPRESSION: 1. Postsurgical changes along the brush machine setter ior aspect of the calcaneus at the insertion of the Achilles tendon. Low-grade interstitial tearing of the Achilles tendon which may be postsurgical. 2. 0.6 x 0.9 x 1.7 cm ganglion along the posterior lateral aspect of the tibiotalar joint. 3. Split thickness interstitial tearing of the peroneus brevis tendon. Procedure Note Ramón Hall MD - 08/20/2019Formattin g of this note might be different from the original. IMPRESSION TECHNIQUE: Routine MRI of the right ankl e was performed without contrast. COMPARISON: 06/17/2018 FINDINGS: TENDONS: Split-thickness interstitial te aring of the peroneus brevis tendon. The tibialis posterior, flexor digitorum and flexor hallucis longus tendons are normal. The tibialis anterior and the visualized extensor tendons are normal. LIGAMENTS: The anterior and posterior ta lofibular ligaments and the calcaneofibular ligament are normal. The anterior and posterior inferior tibiofibular ligaments are normal. The deltoid ligament complex is intact. JOINTS: The tibiotalar, talonavicular, c alcaneocuboid and subtalar joints are unremarkable without evidence of focal cartilage defect. The sinus tarsi is normal. The talocalcaneal ligament is normal. ACHILLES TENDON/PLANTAR FASCIA: Postsurg ical changes along the posterior aspect of the calcaneus and at the insertion of the Achilles tendon. The Achilles tendon demonstrates scattered areas of low-grade interstitial tearing which may be postsurgical. Small plantar calcaneal enthesophyte with an unremarkable appearance of the plantar fascia. MARROW AND SOFT TISSUES: Marrow signal i s normal. 0.6 x 0.9 x 1.7 cm ganglion along the posterior lateral aspect of the tibiotalar joint. IMPRESSION: 1. Postsurgical changes along the brush machine setter ior aspect of the calcaneus at the insertion of the Achilles tendon. Low-grade interstitial tearing of the Achilles tendon which may be postsurgical. 2. 0.6 x 0.9 x 1.7 cm ganglion along the posterior lateral aspect of the tibiotalar joint. 3. Split thickness interstitial tearing of the peroneus brevis tendon. Samir Freire MD RAD MRI documented in this encounter Visit Diagnoses Diagnosis Acute right ankle pain - Primary Acute right ankle pain documented in this encounter Care Teams Plastic Bubble Packer Relationship Specialty Start Date End Date Unassigned, Provider PCP - General 08/13/[address] [place] [address] documented as of this encounter
--- OUTSIDE RECORDS SUMMARY | 2021-12-08 11:19 | XMS_ITS | Encounter Summary ---
:1970 Author Organization [facility] Address [address], [place] [address] Care Team Providers Name Role Phone Unassigned, Provider Primary Care Provider Unavailable Encounter Details Date Type Department Care Team Description 04/08/2013 Orders Only HP Claims MD [employer] Contact Bill [address] [place] [address] Mailstop [id number] [phone] (Wo rk) Social History Tobacco Use Types Packs/Day Years Used Date Smoking Tobacco: Never Assessed Sex Assigned at Date Recorded Not on file documented as of this encounter Plan of Treatment Not on filedocumented as of this encounter Visit Diagnoses Not on filedocumented in this encounter Care Teams Bench Technician Relationship Specialty Start Date End Date Unassigned, Provider PCP - General 08/13/[address] [place] [address] documented as of this encounter
--- OUTSIDE RECORDS SUMMARY | 2021-12-08 11:19 | XMS_ITS | Encounter Summary ---
:1970 Author Organization [email or web address] Address [address] [place] [address] Care Team Providers Name Role Phone Unassigned, Provider Primary Care Provider Unavailable Reason for Visit Procedure/Equipment (Routine) - Incomplete Specialty Diagnoses / Procedures Referred By Contact Refer red To Contact Procedures Samir Freire MD Foreign Image(S) XR [address] [facility] [address] [place], [place] [address] Referral ID Status Reason Start Date Expiration Date Visits V isits Requested Authorized [id number] Incomplete 04/13/2019 07/12/2020 1 1 Encounter Details Date Type Department Care Team Description 06/17/2018 Ancillary Procedure [facility] Radiology PACS Samir Freire MD [address] [place] [address] [place] [place] [address] [place] [address] (Wo rk) Social History Tobacco Use Types Packs/Day Years Used Date Smoking Tobacco: Never Assessed Sex Assigned at Date Recorded Not on file documented as of this encounter Plan of Treatment Not on filedocumented as of this encounter Procedures Procedure Name Priority Date/Time Associated Diagnosis Comme nts FOREIGN IMAGE(S) XR Routine 06/17/2018 12:00 AM R esults for this EXTREMITY CDT procedure are i n the results section. documented in this encounter Results Foreign Image(S) XR Extremity (06/17/2018 12:00 AM CDT) Specimen (Source) Anatomical Location Collection Method / Collectio n Time Received Time / Laterality Volume Narrative POCT - 04/13/2019 10:07 AM ACCOUNTS RECEIVABLE ADMINISTRATOR These outside images have been uploaded into PACS. If the results were provided, they will be located in the pa tient's chart under the Media or Imaging tab. Samir Freire MD RAD NON-REPORTABLES Performing Organization Address City/State/ZIP Code Phon e Number POCT documented in this encounter Visit Diagnoses Not on filedocumented in this encounter Care Teams Palliative Care Nurse Relationship Specialty Start Date End Date Unassigned, Provider PCP - General 08/13/[address] [place] [address] documented as of this encounter
--- OUTSIDE RECORDS SUMMARY | 2021-12-08 11:19 | XMS_ITS | Encounter Summary ---
:1970 Author Organization [employer] Address [address], [place] [address] Care Team Providers Name Role Phone Unassigned, Provider Primary Care Provider Unavailable Reason for Visit Reason Comments Call Back Encounter Details Date Type Department Care Team Description 04/20/2019 Telephone [facility] Samir Russell MD Call Back [address] [facility] [address] [facility] [place] [address] [place] [address] [phone] (Wo rk) Social History Tobacco Use Types Packs/Day Years Used Date Smoking Tobacco: Never Assessed Sex Assigned at Date Recorded Not on file documented as of this encounter Nursing Notes Sandy Feldman PA-C - 04/22/2019 12:56 PM CST Received call from patient. All patient questions answered. She will call if she has any questions in the future. Sandy Feldman PA-C Sandy Almodovar PA-C - 04/20/2019 12:46 PM CST I called the patient to discuss the questions she had regarding surgery. I left a message for her tino Alexander back and let us know when a good time to reach her would be. Sandy Feldman PA-C Catherine Verde - 04/20/2019 10:16 AM CST Patient has medical questions about scheduled surgery. She wants that Sandy call her at [phone] [facility] documented in this encounter Plan of Treatment Not on filedocumented as of this encounter Visit Diagnoses Not on filedocumented in this encounter Care Teams Associate Professor Of Medicine Relationship Specialty Start Date End Date Unassigned, Provider PCP - General 08/13/[address] [place] [phone] documented as of this encounter
--- OUTSIDE RECORDS SUMMARY | 2021-12-08 11:19 | XMS_ITS | Encounter Summary ---
:1970 Author Organization [employer] Address [address] [place] [address] Care Team Providers Name Role Phone Unassigned, Provider Primary Care Provider Unavailable Reason for Visit Reason Comments Surgery Questions Encounter Details Date Type Department Care Team Description 05/12/2019 Telephone [facility] Samir Russell MD Surgery Questions [address] [facility] [address] [facility] [address] [place] [address] [place] [address] [phone] (Wo rk) Social History Tobacco Use Types Packs/Day Years Used Date Smoking Tobacco: Never Assessed Sex Assigned at Date Recorded Not on file documented as of this encounter Nursing Notes Catherine Ramos - 05/13/2019 3:31 PM CDT Return call to patient. She should call me back, if she has questions. In our previous communication from this morning, I mention to her that we can't schedule elective surgeries now. Due COVID-19 Macarena Santos - 05/12/2019 3:58 PM CDT Has the patient recently had surgery or an injury? No How may we help you today? Patient returning call about rescheduling upcoming 07/15/19 surgery. Please contact at mobile number to reschedule. Describe your symptoms/concerns: NA When did the issue start: NA Have you been seen for this recently?: NA [[facility]: If yes, please include date and provider.] Is it okay to leave detailed message on your voicemail? YES [[facility] [employer] [facility]: If this call is after 3 p.m., communicate to patient: If we are not able to get back to you by the end of the day and your symptoms worsen please contact the Careline] documented in this encounter Plan of Treatment Not on filedocumented as of this encounter Visit Diagnoses Not on filedocumented in this encounter Care Teams Cartridge Loading Operator Relationship Specialty Start Date End Date Unassigned, Provider PCP - General 08/13/[address] [place] [phone] documented as of this encounter
--- OUTSIDE RECORDS SUMMARY | 2021-12-08 11:19 | XMS_ITS | Encounter Summary ---
:1970 Author Organization [facility] Address [address], [place] [address] Care Team Providers Name Role Phone Unassigned, Provider Primary Care Provider Unavailable Reason for Visit Procedure/Equipment (Routine) - Closed Specialty Diagnoses / Procedures Referred By Contact Refer red To Contact Diagnoses Acute right ankle pain Samir Freire MD Procedures MR Ankle Rt WO IV Cont [address] [facility] [address] [address] [place] [address] Referral ID Status Reason Start Date Expiration Date Visits Requ ested Visits Authorized [id number] Closed 04/17/2019 07/16/2020 1 1 Encounter Details Date Type Department Care Team Description 08/20/2019 Ancillary [facility] MRI Samir Freire, Acute right ankle Procedure [address] [facility] [place] [address] [phone] Social History Tobacco Use Types Packs/Day Years Used Date Smoking Tobacco: Never Assessed Sex Assigned at Date Recorded Not on file documented as of this encounter Plan of Treatment Not on filedocumented as of this encounter Procedures Procedure Name Priority Date/Time Associated Diagnosis Comme nts MR ANKLE RT WO IV Routine 08/20/2019 10:01 AM Acute right ankl e Results for this CONT CDT pain procedure are i n the results section. documented in this encounter Results MR Ankle Rt WO [...] joint. IMPRESSION: 1. Postsurgical changes along the head trimmer ior aspect of the calcaneus at the [...] joint. IMPRESSION: 1. Postsurgical changes along the head trimmer ior aspect of the calcaneus at the [...] Visit Diagnoses Diagnosis Acute right ankle pain documented in this encounter Care Teams Roving Inspector Relationship Specialty Start Date End Date Unassigned, Provider PCP - General 08/13/[address] [place] [address] documented as of this encounter
--- OUTSIDE RECORDS SUMMARY | 2021-12-08 11:19 | XMS_ITS | Encounter Summary ---
:1970 Author Organization [facility] Address [address] [address] Care Team Providers Name Role Phone Unassigned, Provider Primary Care Provider Unavailable Reason for Visit Reason Comments ANKLE PAIN right achilles Encounter Details Date Type Department Care Team Description 08/20/2019 Office Visit [facility] Samir Freire Achill tendon pain CENTER (Primary Dx) [address] [facility] [address] [facility] [facility] [address] [place] [address] [place], [place] [phone] (Wo rk) Social History Tobacco Use Types Packs/Day Years Used Date Smoking Tobacco: Never Assessed Sex Assigned at Date Recorded Not on file documented as of this encounter Patient Instructions Patient InstructionsStAngy nolan - 08/20/2019 11:[address] Samir Freire MD Orthopaedic Surgeon/Foot & Ankle Specialist Hospital Insurance Clerk, [facility] Medication Requests: Prescriptions are not filled on weekends or on weekdays after 3:00 PM documented in this encounter Progress Notes Samir Freire MD - 08/20/2019 12:00 PM CDT NAME: NIMO PRO MR#: [id number] CSN: [id number] AUTHENTICATING CLINICIAN: Samir Freire MD CONFIRM #: [id number] LOC: 711 CLINIC PROGRESS NOTE DATE OF VISIT: 08/20/2019 : 1970 CHIEF COMPLAINT: Right ankle pain and possible Achilles tendinosis. Ms. Pro presents today for further followup. An MRI has been obtained, which is significant for showing a fair amount of tendinosis along the distal 5-6 mm of the Achilles tendon. She also presents with some prominent Wendy's deformity. No physical exam was performed today. ASSESSMENT: Right Achilles tendinosis with Wendy's deformity. I discussed with the patient that at this point, if in fact she has tried [place]aston techniques for physical therapy, which she reports that she has, then the only other option to improve her discomfort will consist of undergoing an Achilles tendon debridement with a partial calcaneus excision and subsequent reattachment with possible FHL tendon transfer. I discussed with her the most likely postoperative course and complications from such intervention, which include, but not limited to infection, bleeding, nerve damage, residual pain, and stiffness and rupture of the tendon. The patient would like to do some thinking and discuss it with her . She will follow up on a p.r.n. basis. She has no activity restrictions. The patient will be cleared to proceed with the surgery within the next 3 months. TT: 15 minutes. FAP:MEDQ C: R:08/20/19 11:00 CONFIRM#:[id number] documented in this encounter Plan of Treatment Not on filedocumented as of this encounter Visit Diagnoses Diagnosis Achilles tendon pain - Primary Achilles bursitis or tendinitis documented in this encounter Care Teams Rock Cutter Relationship Specialty Start Date End Date Unassigned, Provider PCP - General 08/13/[address] [place] [address] documented as of this encounter
[2021-12-08 11:57] LABS: SARS Antigen* negative (Negative)
--- OUTSIDE RECORDS SUMMARY | 2021-12-08 12:05 | XMS_ITS | Encounter Summary ---
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
--- OUTSIDE RECORDS SUMMARY | 2021-12-08 12:05 | XMS_ITS | Encounter Summary ---
:1970 Author Organization [facility] Address [address] [address] Care Team Providers Name Role Phone Unassigned, Provider Primary Care Provider Unavailable Encounter Details Date Type Department Care Team Description 04/08/2013 Orders Only HP Claims MD Ravin Security Contact Bill [address] [place] [address] Mailstop [id number] [phone] (Wo rk) Social History Tobacco Use Types Packs/Day Years Used Date Smoking Tobacco: Never Assessed Sex Assigned at Date Recorded Not on file documented as of this encounter Plan of Treatment Not on filedocumented as of this encounter Visit Diagnoses Not on filedocumented in this encounter Care Teams Informatics Manager Relationship Specialty Start Date End Date Unassigned, Provider PCP - General 08/13/[address] [place] [address] documented as of this encounter
--- OUTSIDE RECORDS SUMMARY | 2021-12-08 12:05 | XMS_ITS | Encounter Summary ---
:1970 Author Organization [facility] Address [address] [address] Care Team Providers Name Role Phone Unassigned, Provider Primary Care Provider Unavailable Reason for Visit Procedure/Equipment (Routine) - Closed Specialty Diagnoses / Procedures Referred By Contact Refer red To Contact Diagnoses Acute right ankle pain Samir Freire MD Procedures MR Ankle Rt WO IV Cont [address] [facility] [address] [place] [address] Referral ID Status Reason Start Date Expiration Date Visits Requ ested Visits Authorized [id number] Closed 04/17/2019 07/16/2020 1 1 Encounter Details Date Type Department Care Team Description 08/20/2019 Ancillary [facility] MRI Samir Freire, Acute right ankle Procedure [address] [place] [address] [phone] Social History Tobacco Use Types Packs/Day Years [...] joint. IMPRESSION: 1. Postsurgical changes along the towboat pilot ior aspect of the calcaneus at the [...] joint. IMPRESSION: 1. Postsurgical changes along the towboat pilot ior aspect of the calcaneus at the [...] pain documented in this encounter Care Teams Hole Filler Relationship Specialty Start Date End Date Unassigned, Provider PCP - General 08/13/[address] [place] [address] documented as of this encounter
--- OUTSIDE RECORDS SUMMARY | 2021-12-08 12:05 | XMS_ITS | Encounter Summary ---
:1970 Author Organization [employer] Address [address] [place] [address] Care Team Providers Name Role Phone Unassigned, Provider Primary Care Provider Unavailable Reason for Visit Reason Comments Surgery Questions Encounter Details Date Type Department Care Team Description 05/12/2019 Telephone [facility] Samir Russell MD Surgery Questions [address] [facility] [address] [address] [facility] [address] [place] [address] [place] [address] [phone] (Wo rk) Social History Tobacco Use Types [...] you been seen for this recently?: NA [[facility]: If yes, please include date and provider.] Is it okay to leave detailed message on your voicemail? YES [[facility]: If this call is after 3 p.m., communicate to patient: If we are not able to get back to you by the end of the day and your symptoms worsen please contact the Careline] documented in this encounter Plan of Treatment Not on filedocumented as of this encounter Visit Diagnoses Not on filedocumented in this encounter Care Teams Voicer Relationship Specialty Start Date End Date Unassigned, Provider PCP - General 08/13/[address] [place] [address] documented as of this encounter
--- OUTSIDE RECORDS SUMMARY | 2021-12-08 12:05 | XMS_ITS | Encounter Summary ---
:1970 Author Organization [facility] Address [address] [address] Care Team Providers Name Role Phone Unassigned, Provider Primary Care Provider Unavailable Reason for Visit Reason Comments ANKLE PAIN Encounter Details Date Type Department Care Team Description 04/13/2019 Office Visit [facility], Pain, joint, ankle CENTER MD and foot, right [address] [facility] [address] [facility] (Primary Dx) [place], [place] [address] [place], [place] [phone] (Wo rk) Social History Tobacco Use Types Packs/Day Years Used Date Smoking Tobacco: Never Assessed Sex Assigned at Date Recorded Not on file documented as of this encounter Progress Notes Samir Freire MD - 04/13/2019 12:00 PM CST NAME: NIMO PRO MR#: [id number] CSN: [id number] AUTHENTICATING CLINICIAN: Samir Freire MD CONFIRM #: [id number] LOC: 711 CLINIC PROGRESS NOTE DATE OF [...] tab. 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 She [...] Sandy Feldman PA-C FAP:MEDQ C: R:04/13/19 13:52 CONFIRM#:[id number] LE PUNCH OPERATOR documented in this encounter Plan of Treatment Not on filedocumented as of this encounter Visit Diagnoses Diagnosis Pain, joint, ankle and foot, right - Quiana joe documented in this encounter Care Teams Him Clerk Relationship Specialty Start Date End Date Unassigned, Provider PCP - General 08/13/[address] [place] [address] documented as of this encounter
--- OUTSIDE RECORDS SUMMARY | 2021-12-08 12:05 | XMS_ITS | Encounter Summary ---
:1970 Author Organization [employer] Address [address] [address] Care Team Providers Name Role Phone Unassigned, Provider Primary Care Provider Unavailable Reason for Visit Reason Comments ANKLE PAIN right achilles Encounter Details Date Type Department Care Team Description 08/20/2019 Office Visit [facility] Samir Freire Achill tendon pain CENTER (Primary Dx) [address] [facility] [address] [place] [address] [place], [place] [phone] (Wo rk) Social History Tobacco Use Types Packs/Day Years Used Date Smoking Tobacco: Never Assessed Sex Assigned at Date Recorded Not on file documented as of this encounter Patient Instructions Patient InstructionsStAngy nolan - 08/20/2019 11:[address] Samir Freire MD Orthopaedic Surgeon/Foot & Ankle Specialist Air Hose Coupler, [facility] Medication Requests: Prescriptions are not filled on weekends or on weekdays after 3:00 PM documented in this encounter Progress Notes Samir Freire MD - 08/20/2019 12:00 PM CDT NAME: NIMO PRO MR#: [id number] CSN: [id number] AUTHENTICATING CLINICIAN: Samir Freire MD CONFIRM #: [id number] LOC: 711 CLINIC PROGRESS NOTE DATE OF [...] TT: 15 minutes. FAP:MEDQ C: R:08/20/19 11:00 CONFIRM#:[id number] documented in this encounter Plan of Treatment Not on filedocumented as of this encounter Visit Diagnoses Diagnosis Achilles tendon pain - Primary Achilles bursitis or tendinitis documented in this encounter Care Teams Tool Maker Bench Relationship Specialty Start Date End Date Unassigned, Provider PCP - General 08/13/[address] [place] [address] documented as of this encounter
--- OUTSIDE RECORDS SUMMARY | 2021-12-08 12:05 | XMS_ITS | Encounter Summary ---
:1970 Author Organization [facility] Address [address] [address] Care Team Providers Name Role Phone Unassigned, Provider Primary Care Provider Unavailable Reason for Referral Procedure/Equipment (Routine) - Closed Specialty Diagnoses / Procedures Referred By Contact Refer red To Contact Diagnoses Acute right ankle pain Samir Freire MD Procedures MR Ankle Rt WO IV Cont [address] [facility] [place] [address] Referral ID Status Reason Start Date Expiration Date Visits Requ ested Visits Authorized [id number] Closed 04/17/2019 07/16/2020 1 1 STOCK SHOWMAN Encounter Details Date Type Department Care Team Description 04/17/2019 Notes/Orders [facility] Samir Freire, Acute right ankle CENTER pain (Primary Dx) [address] [facility] [address] [facility] [place] [address] [place] [phone] (Wo rk) Social History Tobacco Use Types [...] 106.6 kg (235 lb) 04/17/2019 8:00 AM LIVESTOCK SHOWMAN Height 160 cm (5' 3) 04/17/2019 8:00 AM LIVESTOCK SHOWMAN Body Mass Index 41.63 04/17/2019 8:00 AM LIVESTOCK SHOWMAN documented in this encounter Plan of Treatment [...] joint. IMPRESSION: 1. Postsurgical changes along the mixer wet pour ior aspect of the calcaneus at the [...] joint. IMPRESSION: 1. Postsurgical changes along the mixer wet pour ior aspect of the calcaneus at the [...] pain documented in this encounter Care Teams Pre Assembly Wirer Relationship Specialty Start Date End Date Unassigned, Provider PCP - General 08/13/[address] [place] [address] documented as of this encounter
--- OUTSIDE RECORDS SUMMARY | 2021-12-08 12:05 | XMS_ITS | Clinical Summary ---
:1970 Author Organization [facility] Address [address], [place] [address] Care Team Providers Name Role Phone Unassigned, [...] for each transition of care or referral. [employer] Allergies Active Allergy Reactions Severity Noted Date [...] 106.6 kg (235 lb) 04/17/2019 8:00 AM CLOUD SOFTWARE ENGINEER Height 160 cm (5' 3) 04/17/2019 8:00 AM CLOUD SOFTWARE ENGINEER Body Mass Index 41.63 04/17/2019 8:00 AM CLOUD SOFTWARE ENGINEER Plan of Treatment Health Maintenance Due Date [...] Addre ss Type Group [place] [id number] 2017-Present [address] [address] [place] [phone] (Home) [place] [id number] NIMO PRO Personal/Family Self [address] (Home) [place] [address] TORIN PRO Personal/Family [address] (Home) [place] [phone] Debora [place] (Work) [phone] Care Teams Director Statistical Programming Relationship Specialty Start Date End Date Unassigned, Provider PCP - General 08/13/[address] [place] [address]
--- OUTSIDE RECORDS SUMMARY | 2021-12-08 12:05 | XMS_ITS | Encounter Summary ---
:1970 Author Organization [facility] Address [address] [place] [address] Care Team Providers Name Role Phone Unassigned, Provider Primary Care Provider Unavailable Reason for Visit Procedure/Equipment (Routine) - Incomplete Specialty Diagnoses / Procedures Referred By Contact Refer red To Contact Procedures Samir Freire MD Foreign Image(S) XR [address] [facility] [address] [place], [place] [address] Referral ID Status Reason Start Date Expiration Date Visits V isits Requested Authorized [id number] Incomplete 04/13/2019 07/12/2020 1 1 Encounter Details Date Type Department Care Team Description 06/17/2018 Ancillary Procedure [facility] Radiology PACS Samir Freire MD [address] [place] [address] [address] [facility] [place] [address] [place] [address] (Wo rk) Social History Tobacco Use Types [...] Volume Narrative POCT - 04/13/2019 10:07 AM FINISH SANDER These outside images have been uploaded into PACS. If the results were provided, they will be located in the pa tient's chart under the Media or Imaging tab. Samir Freire MD RAD NON-REPORTABLES Performing Organization Address City/State/ZIP Code Phon e Number POCT documented in this encounter Visit Diagnoses Not on filedocumented in this encounter Care Teams Childcare Teacher Relationship Specialty Start Date End Date Unassigned, Provider PCP - General 08/13/[address] [place] [address] documented as of this encounter
--- OUTSIDE RECORDS SUMMARY | 2021-12-08 12:06 | XMS_ITS | Clinical Summary ---
:1970 Author Organization [employer] [facility] [place] [address] Care Team Providers Name Role Phone Kiara Hurley MD Unavailable Maksim Sanford MD Primary Care Provider [phone] Allergies Active Allergy Reactions Severity Noted Date [...] HST Setup) Only 12/05/2021 Telemedicine Keri Cuenca [facility] MD Becky 12/05/2021 Procedure Only Pan Hsu MD Results (H OME SLEEP TEST/) 12/04/2021 Office Visit Maksim Sanford Follow Up MD Doris 12/04/2021 Office Visit Giovanna Medeiros [facility] th Intake; KIRSTEN De La Cruz Medication Daniela haynes 12/04/2021 Travel 12/02/2021 Travel 12/01/2021 Telephone Pan Hsu MD Appointment (NET MENDER SLEEP APNEA MAC NESTOR) 11/30/2021 Telemedicine aPn Hsu MD 11/30/2021 Travel 11/26/2021 Travel 11/24/2021 [...] 11/07/2021 [facility] Visit [facility] Neema Santana SALES APPOINTMENT COORDINATOR 11/07/2021 Office Visit Maksim Sanford Diabetes (3 [...] MD Becky 10/18/2021 Office Visit Keri Cuenca [employer]st Exam MD Becky (perimenopausal . has some [...] Name Administration Dates Next Due COVID-19 vaccine ([employer] 01/24/2021 30mcg/0.3mL) PF, MDV Influenza Virus, Unspecified [...] Only Ottoniel Robles MD [address] [place] [address] (Wo rk) 12/19/2021 Orders Only [facility] [place] [employer] 12/28/2021 Nurse/Clinic Staff Only 12/29/2021 Nurse/Clinic Staff [...] Signature TSH 3.39 0.35 - 4.94 11/01/2021 [facility] uIU/mL 7:14 PM CDT LABORATORY-CENTR AL LABORATORY Specimen Anatomical Collection Method / Collection Time Recei robert Time (Source) Location / Volume Laterality Blood BLOOD SPECIMEN / Venipuncture / 11/01/2021 7:58 2021 8:00 Unknown Unknown AM CDT AM CDT Narrative [facility] LABORATORY-CENTRAL LABORAT ORY - 11/01/2021 7:14 PM CDT In Adults, TSH values between 5.00 and 10.00 uIU/ml do not necessarily indicate the presence of Hyp othyroidism. Correlation with clinical findings such as presence of goiter and/or Thyroperoxidase (TPO) Antibody ma y be helpful. For more information please refer to ESTEBAN 20 ; 291: [id number]. Maksim Sanford MD CHEMISTRY Performing Organization Address City/[facility]/ZIP Code Phon e Number [employer] [address] [place] [id number] LABORATORY-CENTRAL 2000 LABORATORY ANTI HCV (11/01/2021 7:58 AM CDT) [facility] Time Signature HEPATITIS C Non-Reacti Non-Reacti 11/01/2021 [facility] ANTIBODY ve ve 7:16 PM CDT LABORATORY-[facility]AN[facility] TRAL LABORATORY Comment: Antibodies to HCV not detected; does not exclude the possibility of exposure to HCV. Specimen Anatomical Collection Method / Collection Time Recei robert Time (Source) Location / Volume Laterality Blood BLOOD SPECIMEN / Venipuncture / 11/01/2021 7:58 2021 8:00 Unknown Unknown AM CDT AM CDT Maksim Sanford MD SEND OUTS Performing Organization Address City/[facility] Phon e Number [facility] [address] [place] [id number] LABORATORY-CENTRAL 2000 LABORATORY HEMOGLOBIN A1C MONITORING (POCT) (11/01/2021 7:58 AM CDT) P athologist Signature HEMOGLOBIN A1C 6.0 <=6.4 % 11/01/2021 [facility] MONITORING 8:31 AM CDT [place] ([facility] Specimen Anatomical Collection Method / Collection Time Recei robert Time (Source) Location / Volume Laterality Blood BLOOD SPECIMEN / Venipuncture / 11/01/2021 7:58 2021 8:00 Unknown Unknown AM CDT AM CDT Narrative [facility] - 8:31 AM CDT ? (<=6.9%) ? [...] Organization Address City/State/ZIP Code Phon e Number [facility] [address] [place], [place] [address] [place] ABDOMEN LIMITED RUQ [...] report s are released immediately into your [facility] medical record. ??You may view this report [...] provider. If you have questions, please contact [facility] care provider. INDICATION: Nausea COMPARISON: CT 09/04/2020 [...] note that all CT scans at this [facility] use dose modulation, iterative reconstruction, and/or weight-based dosing when appropriate to reduce radiation dose to as low as reasonably achievable. Dictated by Evan Love MD @ Oct 09 2 022 ??1:33PM (Electronically Signed) ?? Narrative 10/09/2021 1:33 PM CDT For Patients: ??As a result of the Cures Act, medical imaging exams and procedure report s are released immediately into your [facility] medical record. ??You may view this report before your referring provider. ??If you have questions, please contact your health care provider. INDICATION: Nausea COMPARISON: none TECHNIQUE: A CT volumetric acquisition was performe d of the brain without IV contrast. Please note that all CT scans at this [facility] use dose modulation, iterative reconstruction, and/or weight-based [...] For Patients: As a result of the [facility] Cures Act, medical imaging exams and procedure reports are released immediately into your electronic medical record. You may view this report before your referring provider. If you have questions, please contact yo health care provider. INDICATION: Nausea COMPARISON: none TECHNIQUE: A CT volumetric acquisition was performe d of the brain without IV contrast. Please note that all CT scans at this [facility] use dose modulation, iterative reconstruction, and/or weight-based [...] note that all CT scans at this [facility] use dose modulation, iterative reconstruction, and/or weight-based dosing when appropriate to reduce radiation dose to as low as reasonably achievable. Dictated by Evan Love MD @ Oct 09 2 022 1:33PM (Electronically Signed) Maksim Sanford MD CT COVID 19 (10/08/2021 9:34 PM CDT) [facility] GenY Medium Method Time Signature COVID 19 Not detected Not detected 10/08/2021 [facility] 9:56 PM CDT [facility] LABORATORY Specimen Anatomical Location / Collection Method Collection Chris e Received Time (Source) Laterality / Volume Other SPECIMEN FROM Non-Blood / 10/08/2021 9:34 10/08/2021 9:34 NASOPHARYNGEAL Unknown PM CDT PM CDT STRUCTURE / Unknown Narrative [facility]ORATORY - 9:56 PM CDT This [...] Organization Address City/State/ZIP Code Phon e Number [facility] [address] [place] [address] COVID 19 COLLECTION (10/08/2021 9:34 PM CDT) [facility] GenY Medium Method Time Signature TESTING [facility] 10/08/2021 [place] LABORATORY Laboratory 9:35 PM CDT [facility]OR[facility] Comment: Specimen submitted to [facility] for testing. Specimen Anatomical Location / Collection Method Collection Chris e Received Time (Source) Laterality / Volume Other SPECIMEN FROM Non-Blood / 10/08/2021 9:34 10/08/2021 9:34 NASOPHARYNGEAL Unknown PM CDT PM CDT STRUCTURE / Unknown Andrew Gaspar MD SEND OUTS Performing Organization Address City/[facility]/ZIP Code Phon e Number [facility] [address] [place] [address] (ABNORMAL) URINALYSIS MICROSCOPIC (10/08/2021 9:25 PM CDT) [facility] gist Method Time Signature RBC 0-2 0-2, None 10/08/2021 [place] Seen /HPF 9:39 PM [facility] WBC 6-10 (A) 0-2, 3-5, 10/08/2021 [place] None Seen 9:39 PM CDT [facility] /HPF LABORATORY BACTERIA Moderate (A) None 10/08/2021 [place] Seen, 9:39 PM [facility]T [facility] Rare, Few LABORATORY Bacteria/ HPF EPITHELIAL Many (A) None 10/08/2021 [facility] CELL[facility] Seen, Few 9:39 PM [facility] Epi/HPF LABORATORY Mucus Present 10/08/2021 [place] 9:39 PM [facility] LABORATORY WHITE CELL Present (A) (none) 10/08/2021 [facility] CLUMPS 9:39 PM [facility] LABORATORY Specimen Anatomical Collection Method Collection Time Receive d Time (Source) Location / / Volume Laterality Urine URINE SPECIMEN / Non-Blood / 10/08/2021 9:25 PM 10/08 9:30 Unknown Unknown CDT PM CDT Andrew Gaspar MD URINE Performing Organization Address City/[facility]/ZIP Code Phon e Number [facility] [address] [place] [address] URINE CULTURE (10/08/2021 9:25 PM CDT) athologist Signature CULTURE No growth 10/10/2021 [facility] (<1,000 7:37 AM CDT LABORATORY-CENT CFU/mL) [facility] LABORATORY Specimen Anatomical Collection Method Collection Time Receive d Time (Source) Location / / Volume Laterality Urine URINE SPECIMEN / Non-Blood / 10/08/2021 9:25 PM 10/08 9:30 Unknown Unknown CDT PM CDT Maksim Sanford MD MICROBIOLOGY Performing Organization Address City/State/ZIP Code Phon e Number [facility] [address] [place] [address] LABORATORY-CENTRAL 2000 LABORATORY (ABNORMAL) UA W/ SEDIMENT EXAM REFLEXED PER CRITERIA (10/08/2021 9:25 PM CDT) [facility] Method Time Signature COLOR Yellow Yellow Color 10/08/2021 [place] 9:34 PM [facility] LABORATORY CLARITY Clear Clear 10/08/2021 [place] Clarity 9:34 PM [facility] LABORATORY SPECIFIC 1.010 1.010, 10/08/2021 [place] GRAVITY,URINE 1.015, 9:34 PM [facility] 1.020, 1.025 LABORATORY PH,URINE 6.5 6.0, 7.0, 10/08/2021 [place] 8.0, 5.5, 9:34 PM [facility] 6.5, 7.5, LABORATORY 8.5 UROBILINOGEN, Normal Normal EU/dl 10/08/2021 [place] QUALITATIVE 9:34 PM [facility] LABORATORY PROTEIN, Negative Negative 10/08/2021 [place] URINE mg/dL 9:34 PM [facility] LABORATORY GLUCOSE, Negative Negative 10/08/2021 [place] URINE mg/dL 9:34 PM [facility] LABORATORY KETONES,URINE Negative Negative 10/08/2021 [place] mg/dL 9:34 PM [facility] LABORATORY BILIRUBIN,URI Negative Negative 10/08/2021 [place] NE 9:34 PM [facility] LABORATORY OCCULT Negative Negative 10/08/2021 [place] BLOOD,URINE 9:34 PM [facility] LABORATORY NITRITE Negative Negative 10/08/2021 [place] 9:34 PM [facility] LABORATORY LEUKOCYTE Small (A) Negative 10/08/2021 [place] ESTERASE 9:34 PM [facility] LABORATORY Specimen Anatomical Collection Method Collection Time Receive d Time (Source) Location / / Volume Laterality Urine URINE SPECIMEN / Non-Blood / 10/08/2021 9:25 PM 10/08 9:30 Unknown Unknown CDT PM CDT Andrew Gaspar MD URINE Performing Organization Address City/State/ZIP Code Phon e Number [facility] [address] [place] [address] URINE (10/08/2021 9:25 PM CDT) Analysis Performed At [facility] logist Time Signature ,URIN Negative Negative 10/08/2021 [place] E 9:34 PM [facility] LABORATORY Specimen Anatomical Collection Method Collection Time Receive d Time (Source) Location / / Volume Laterality Urine URINE SPECIMEN / Non-Blood / 10/08/2021 9:25 PM 10/08 9:30 Unknown Unknown CDT PM CDT Andrew Gaspar MD URINE Performing Organization Address City/State/ZIP Code Phon e Number [facility] [address] [place] [address] (ABNORMAL) CBC WITH AUTO DIFFERENTIAL (10/08/2021 9:02 PM CDT)Only the most recent of2 resultswithin the time period is included. [facility] gist Method Time Signature WHITE BLOOD 13.0 (H) 4.5 - 10/08/2021 [place] COUNT 11.0 9:17 PM [facility] thou/cu LABORATORY mm RED BLOOD COUNT 4.72 4.00 - 10/08/2021 [place] 5.20 9:17 PM [facility] mil/cu mm LABORATORY HEMOGLOBIN 14.9 12.0 - 10/08/2021 [place] 16.0 g/dL 9:17 PM [facility] LABORATORY HEMATOCRIT 45.1 33.0 - 10/08/2021 [place] 51.0 % 9:17 PM [facility] LABORATORY MCV 96 80 - 100 10/08/2021 [place] fL 9:17 PM [facility] LABORATORY MCH 31.6 26.0 - 10/08/2021 [place] 34.0 pg 9:17 PM [facility] LABORATORY MCHC 33.0 32.0 - 10/08/2021 [place] 36.0 g/dL 9:17 PM [facility] LABORATORY RDW 13.9 11.5 - 10/08/2021 [place] 15.5 % 9:17 PM [facility] LABORATORY PLATELET COUNT 275 140 - 440 10/08/2021 [place] thou/cu 9:17 PM [facility] mm LABORATORY MPV 11.0 6.5 - 10/08/2021 [place] 11.0 fL 9:17 PM [facility] LABORATORY % NEUT 48.3 % 10/08/2021 [place] 9:17 PM [facility] LABORATORY % LYMPH 36.6 % 10/08/2021 [place] 9:17 PM [facility] LABORATORY % MONO 9.6 % 10/08/2021 [place] 9:17 PM [facility] LABORATORY % EOS 4.8 % 10/08/2021 [place] 9:17 PM [facility] LABORATORY % BASO 0.7 % 10/08/2021 [place] 9:17 PM [facility] LABORATORY ABSOLUTE 6.3 1.7 - 7.0 10/08/2021 [place] NEUTROPHILS thou/cu 9:17 PM [facility] mm LABORATORY ABSOLUTE 4.8 (H) 0.9 - 2.9 10/08/2021 [place] LYMPHOCYTES thou/cu 9:17 PM [facility] mm LABORATORY ABSOLUTE 1.3 (H) <0.9 10/08/2021 [place] MONOCYTES thou/cu 9:17 PM [facility] mm LABORATORY ABSOLUTE 0.6 (H) <0.5 10/08/2021 [place] EOSINOPHILS thou/cu 9:17 PM [facility] LABORATORY ABSOLUTE 0.1 <0.3 10/08/2021 [place] BASOPHILS thou/cu 9:17 PM [facility] mm LABORATORY Specimen Anatomical Collection Method / Collection Time Recei robert Time (Source) Location / Volume Laterality Blood BLOOD SPECIMEN / Venipuncture / 10/08/2021 9:02 2021 9:05 Unknown Unknown PM CDT PM CDT Andrew Gaspar MD HEMATOLOGY Performing Organization Address City/State/ZIP Code Phon e Number [facility] [address] [place] [address] MAGNESIUM (10/08/2021 9:02 PM CDT) P athologist Signature MAGNESIUM 1.8 1.6 - 2.6 10/08/2021 [place] mg/dL 9:27 PM [facility] LABORATORY Specimen Anatomical Collection Method / Collection Time Recei robert Time (Source) Location / Volume Laterality Blood BLOOD SPECIMEN / Venipuncture / 10/08/2021 9:02 2021 9:05 Unknown Unknown PM CDT PM CDT Andrew Gaspar MD CHEMISTRY Performing Organization Address City/[facility]/ZIP Code Phon e Number [facility] [address] [place] [address] LIPASE (10/08/2021 9:02 PM CDT) athologist Signature LIPASE 38.8 8.0 - 78.0 10/08/2021 [place] IU/L 9:28 PM CDT [facility] LABORATORY Specimen Anatomical Collection Method / Collection Time Recei robert Time (Source) Location / Volume Laterality Blood BLOOD SPECIMEN / Venipuncture / 10/08/2021 9:02 2021 9:05 Unknown Unknown PM CDT PM CDT Andrew Gaspar MD CHEMISTRY Performing Organization Address City/[facility]/ZIP Code Phon e Number [facility] [address] [place] [address] VITAMIN B12 (10/08/2021 9:02 PM CDT) athologist Signature VITAMIN B12 805 180 - 914 10/16/2021 [facility] pg/mL 11:38 AM CDT LABORATORY-CENT [facility] LABORATORY Specimen Anatomical Collection Method / Collection Time Recei robert Time (Source) Location / Volume Laterality Blood BLOOD SPECIMEN / Venipuncture / 10/08/2021 9:02 2021 9:05 Unknown Unknown PM CDT PM CDT David DERAS CHEMISTRY Performing Organization Address City/State/ZIP Code Phon e Number [facility] [address] [place] [address] LABORATORY-CENTRAL 2000 LABORATORY HEPATIC FUNCTION PANEL (10/08/2021 9:02 PM CDT) athologist Signature ALBUMIN 3.9 3.5 - 5.2 10/08/2021 [place] g/dL 9:27 PM CDT [facility] LABORATORY PROTEIN,TOTAL 7.2 6.0 - 8.0 10/08/2021 [place] g/dL 9:27 PM [facility] LABORATORY GLOBULIN 3.3 2.0 - 3.7 10/08/2021 [place] g/dL 9:27 PM [facility] LABORATORY A/G RATIO 1.2 1.0 - 2.0 10/08/2021 [place] 9:27 PM [facility] LABORATORY BILIRUBIN,TOTAL 0.5 0.2 - 1.2 10/08/2021 [place] mg/dL 9:27 PM [facility] LABORATORY BILIRUBIN,DIRECT 0.2 0.1 - 0.5 10/08/2021 [place] mg/dL 9:27 PM [facility] LABORATORY BILIRUBIN,INDIRE 0.3 0.2 - 0.8 10/08/[address] [place] [address] mg/dL 9:27 PM [facility] LABORATORY ALK PHOSPHATASE 73 50 - 136 10/08/2021 [place] IU/L 9:27 PM [facility] LABORATORY ALT (SGPT) 24 8 - 45 10/08/2021 [place] IU/L 9:27 PM [facility] LABORATORY AST (SGOT) 19 2 - 40 10/08/2021 [place] IU/L 9:27 PM [facility] LABORATORY Specimen Anatomical Collection Method / Collection Time Recei robert Time (Source) Location / Volume Laterality Blood BLOOD SPECIMEN / Venipuncture / 10/08/2021 9:02 2021 9:05 Unknown Unknown PM CDT PM CDT Andrew Gaspar MD CHEMISTRY Performing Organization Address City/State/ZIP Code Phon e Number [facility] [address] [place] [address] (ABNORMAL) BASIC METABOLIC PANEL (10/08/2021 9:02 PM CDT) Analysis Performed At Patho logist Time Signature SODIUM 140 135 - 145 10/08/2021 [place] mmol/L 9:25 PM [facility] LABORATORY POTASSIUM 3.7 3.5 - 5.0 10/08/2021 [place] mmol/L 9:25 PM [facility] LABORATORY CHLORIDE 104 98 - 110 10/08/2021 [place] mmol/L 9:25 PM [facility] LABORATORY CO2,TOTAL 24 21 - 31 10/08/2021 [place] mmol/L 9:25 PM [facility] LABORATORY ANION GAP 12 5 - 18 10/08/2021 [place] 9:25 PM [facility] LABORATORY GLUCOSE 167 (H) 65 - 100 10/08/2021 [place] mg/dL 9:25 PM [facility] LABORATORY CALCIUM 9.4 8.5 - 10.5 10/08/2021 [place] mg/dL 9:25 PM [facility] LABORATORY BUN 16 8 - 25 10/08/2021 [place] mg/dL 9:25 PM [facility] LABORATORY CREATININE 0.82 0.57 - 10/08/2021 [place] 1.11 mg/dL 9:25 PM [facility] LABORATORY BUN/CREAT RATIO 20 10 - 20 10/08[facility] 9[facility]25 PM [facility] LABORATORY eGFR 87 (L) >90 10/08/2021 [place] mL/min/1.7 9:25 PM [facility] 3m2 LABORATORY Comment: As of 2021, eGFR [...] Organization Address City/State/ZIP Code Phon e Number [facility] [address] [place] [address] EKG 12 LEAD (10/08/2021 8:47 PM CDT)Only [...] NOW QTc 442 ms BEYOND NOW P Rainier 41 degrees BEYOND NOW R Rainier -35 degrees BEYOND NOW T Rainier 14 degrees BEYOND NOW Specimen Anatomical Collection Method Collection Time Receive d Time (Source) Location / / Volume Laterality 10/08/2021 8:47 PM 5:44 CDT AM CDT Andrew Gaspar MD EKG ORD Performing Organization Address [facility] Phon e Number BEY[place] NOW [place], [place] TSH (10/01/2021 6:46 AM CDT) athologist Signature TSH 2.56 0.35 - 4.94 10/01/2021 [place] uIU/mL 7:30 AM T [facility] LABORATORY Specimen Anatomical Collection Method / Collection Time Recei robert Time (Source) Location / Volume Laterality Blood BLOOD SPECIMEN / Venipuncture / 10/01/2021 6:46 2021 6:49 Unknown Unknown AM CDT AM CDT Narrative [facility] LAB[facility]ORY - 7:30 AM CDT In Adults, TSH values between 5.00 and 10.00 uIU/ml do not necessarily indicate the presence of Hyp othyroidism. Correlation with clinical findings such as presence of goiter and/or Thyroperoxidase (TPO) Antibody ma y be helpful. For more information please refer to ESTEBAN 20 ; 291: [phone]. Esa Garnica DO CHEMISTRY Performing Organization Address City/[facility] Phon e Number [facility] [address] [place] [address] (ABNORMAL) COMP METABOLIC PANEL (10/01/2021 6:46 AM CDT) [facility] Time Signature SODIUM 142 135 - 145 10/01/2021 [place] mmol/L 7:10 AM T [facility] LABORATORY POTASSIUM 4.0 3.5 - 5.0 10/01/2021 [place] mmol/L 7:10 AM T [facility] LABORATORY CHLORIDE 107 98 - 110 10/01/2021 [place] mmol/L 7:10 AM [facility] LABORATORY CO2,TOTAL 22 21 - 31 10/01/2021 [place] mmol/L 7:10 AM [facility] LABORATORY ANION GAP 13 5 - 18 10/01/2021 [place] 7:10 AM [facility] LABORATORY GLUCOSE 167 (H) 65 - 100 10/01/2021 [place] mg/dL 7:10 AM [facility] LABORATORY CALCIUM 9.3 8.5 - 10.5 10/01/2021 [place] mg/dL 7:10 AM [facility] LABORATORY BUN 15 8 - 25 10/01/2021 [place] mg/dL 7:10 AM [facility] LABORATORY CREATININE 0.74 0.57 - 10/01/2021 [place] 1.11 mg/dL 7:10 AM [facility] LABORATORY BUN/CREAT RATIO 20 10 - 20 10/01/2021 [place] 7:10 AM [facility] LABORATORY ALBUMIN 3.9 3.5 - 5.2 10/01/2021 [place] g/dL 7:10 AM [facility] LABORATORY PROTEIN,TOTAL 7.1 6.0 - 8.0 10/01/2021 [place] g/dL 7:10 AM [facility] LABORATORY GLOBULIN 3.2 2.0 - 3.7 10/01/2021 [place] g/dL 7:10 AM [facility] LABORATORY A/G RATIO 1.2 1.0 - 2.0 10/01/2021 [place] 7:10 AM [facility] LABORATORY BILIRUBIN,TOTAL 1.0 0.2 - 1.2 10/01/2021 [place] mg/dL 7:10 AM [facility] LABORATORY ALK PHOSPHATASE 61 50 - 136 10/01/2021 [place] IU/L 7:10 AM [facility] LABORATORY ALT (SGPT) 23 8 - 45 10/01/2021 [place] IU/L 7:10 AM [facility] LABORATORY AST (SGOT) 17 2 - 40 10/01/2021 [place] IU/L 7:10 AM [facility] LABORATORY eGFR >90 >90 10/01/2021 [place] mL/min/1.7 7:10 AM [facility] 3m2 LABORATORY Comment: As of 2021, eGFR [...] Jjgabe Garnica DO CHEMISTRY Performing Organization Address City/[facility]/ZIP Code Phon e Number [facility] [address] [place] [address] (ABNORMAL) GLUCOSE METER (10/01/2021 6:26 AM CDT) P athologist Signature GLUCOSE METER 180 (H) 65 - 100 10/01/2021 [place] mg/dL 6:30 AM CDT [facility] LABORATORY Specimen Anatomical Collection Method Collection Time Receive d Time (Source) Location / / Volume Laterality Blood BLOOD SPECIMEN / 10/01/2021 6:26 AM 10/01 6:30 Unknown CDT AM CDT Esa Brionessuly Garnica DO CHEMISTRY Performing Organization Address City/[facility]/ZIP Code Phon e Number [facility] [address] [place] [address] XR MAMMO BILAT SCREENING (09/12/2021 10:47 AM [...] provider. If you have questions, please contact [facility] health care provider. XR MAMMO BILAT SCREENING [[id number]] CLINICAL HISTORY: ??This is an asymptoma tic [...] ID Effective Dates Phone Addre ss Type [employer] [id number] 2011-Present [address] [place] [address] MEDICA MEDICA CHOICE [id number] 2020-Present [address] [address] [place] [address] (Home) [place] [address] [employer] Personal/Family Spouse [address] (Home) W [phone] Debora CALIXTO (Work) [address] [facility] 02/26/2000 CLINIC ID CLINIC [facility] (Home) [address] [address] [address] [place] [address] Advance Directives Latest Code Status on File Code Status Date Activated Date Inactivated Comments Full Code 01/06/2019 11:51 AM 01/06/2019 5:58 PM Code Status Discussion: Discussed Care Teams Conveyor System Operator Relationship Specialty Start Date End Date Maksim Sanford MD PCP - General Family Practice 12/07/20 [address] [place] [address] Kiara Hurley MD Family Practice 07/23/13 (work)
== END 2021-12-08 11:16 | disposition home or self-care (01) ==
LOC: NPINS 11:15
PROVIDERS: Visit Provider Internal Medicine Gastroenterology
DX: Z20.822 Contact with and (suspected) exposure to COVID-19 (principal)
CPT/HCPCS: 87426

== ENCOUNTER 2021-12-11 10:19 | Outpatient (CLI) | payer OTHER, SELFPAY ==
--- OUTSIDE RECORDS SUMMARY | 2021-12-11 11:04 | XMS_ITS | Encounter Summary ---
:1970 Author Organization [facility] Address [address] [place] [address] Care Team Providers Name Role Phone Unassigned, Provider Primary Care Provider Unavailable Reason for Visit Procedure/Equipment (Routine) - Incomplete Specialty Diagnoses / Procedures Referred By Contact Refer red To Contact Procedures Samir Freire MD Foreign Image(S) XR [address] [facility] [address] [place], [place] [address] Referral ID Status Reason Start Date Expiration Date Visits V isits Requested Authorized [id number] Incomplete 04/13/2019 07/12/2020 1 1 Encounter Details Date Type Department Care Team Description 06/17/2018 Ancillary Procedure [facility] Radiology PACS Samir Freire MD [address] [place] [address] [address] [facility] [place] [address] [place] [address] (Wo rk) Social History Tobacco Use Types [...] Volume Narrative POCT - 04/13/2019 10:07 AM [facility] These outside images have been uploaded into PACS. If the results were provided, they will be located in the pa tient's chart under the Media or Imaging tab. Samir Freire MD RAD NON-REPORTABLES Performing Organization Address City/State/ZIP Code Phon e Number POCT documented in this encounter Visit Diagnoses Not on filedocumented in this encounter Care Teams Veterinary Surgery Technician Relationship Specialty Start Date End Date Unassigned, Provider PCP - General 08/13/[address] [place] [id number] documented as of this encounter
--- OUTSIDE RECORDS SUMMARY | 2021-12-11 11:04 | XMS_ITS | Encounter Summary ---
:1970 Author Organization [employer] Address [address], [place] [address] Care Team Providers Name Role Phone Unassigned, Provider Primary Care Provider Unavailable Reason for Visit Reason Comments Call Back Encounter Details Date Type Department Care Team Description 04/20/2019 Telephone [facility] Samir Russell MD Call Back [address] [facility] [address] [facility] [place] [address] [place] [address] [phone] (Wo rk) Social History Tobacco Use Types [...] She wants that Sandy call her at [phone] ING PATROLLER documented in this encounter Plan of Treatment Not on filedocumented as of this encounter Visit Diagnoses Not on filedocumented in this encounter Care Teams Manager Relocation Relationship Specialty Start Date End Date Unassigned, Provider PCP - General 08/13/[address] [place] [id number] documented as of this encounter
--- OUTSIDE RECORDS SUMMARY | 2021-12-11 11:04 | XMS_ITS | Encounter Summary ---
:1970 Author Organization [email or web address] Address [address] [place] [address] Care Team Providers Name Role Phone Unassigned, Provider Primary Care Provider Unavailable Reason for Referral Procedure/Equipment (Routine) - Closed Specialty Diagnoses / Procedures Referred By Contact Refer red To Contact Diagnoses Acute right ankle pain Samir Freire MD Procedures MR Ankle Rt WO IV Cont [address] [facility] [address] [place] [address] Referral ID Status Reason Start Date Expiration Date Visits Requ ested Visits Authorized [id number] Closed 04/17/2019 07/16/2020 1 1 DAY CARE PROVIDER Encounter Details Date Type Department Care Team Description 04/17/2019 Notes/Orders [facility] Samir Freire, Acute right ankle CENTER pain (Primary Dx) [address] [facility] [address] [facility] [address] [address] [place] [phone] (Wo rk) Social History Tobacco Use Types [...] 106.6 kg (235 lb) 04/17/2019 8:00 AM HOME DAY CARE PROVIDER Height 160 cm (5' 3) 04/17/2019 8:00 AM HOME DAY CARE PROVIDER Body Mass Index 41.63 04/17/2019 8:00 AM HOME DAY CARE PROVIDER documented in this encounter Plan of Treatment [...] joint. IMPRESSION: 1. Postsurgical changes along the card tender ior aspect of the calcaneus at the [...] joint. IMPRESSION: 1. Postsurgical changes along the card tender ior aspect of the calcaneus at the [...] pain documented in this encounter Care Teams Equity Trader Relationship Specialty Start Date End Date Unassigned, Provider PCP - General 08/13/[address] [place] [phone] documented as of this encounter
--- OUTSIDE RECORDS SUMMARY | 2021-12-11 11:04 | XMS_ITS | Encounter Summary ---
:1970 Author Organization [facility] Address [address], [place] [address] Care Team Providers Name Role Phone Unassigned, Provider Primary Care Provider Unavailable Reason for Visit Procedure/Equipment (Routine) - Closed Specialty Diagnoses / Procedures Referred By Contact Refer red To Contact Diagnoses Acute right ankle pain Samir Freire MD Procedures MR Ankle Rt WO IV Cont [address] [facility] [address] [place] [address] Referral ID Status Reason Start Date Expiration Date Visits Requ ested Visits Authorized [id number] Closed 04/17/2019 07/16/2020 1 1 Encounter Details Date Type Department Care Team Description 08/20/2019 Ancillary [facility] Samir Freire, Acute right ankle Procedure [address] [facility] [place] [address] [phone] Social History Tobacco Use Types Packs/Day Years [...] joint. IMPRESSION: 1. Postsurgical changes along the radiator cleaner ior aspect of the calcaneus at the [...] joint. IMPRESSION: 1. Postsurgical changes along the radiator cleaner ior aspect of the calcaneus at the [...] pain documented in this encounter Care Teams Internal Audit Director Relationship Specialty Start Date End Date Unassigned, Provider PCP - General 08/13/[address] [place] [address] documented as of this encounter
--- OUTSIDE RECORDS SUMMARY | 2021-12-11 11:04 | XMS_ITS | Encounter Summary ---
:1970 Author Organization [employer] Address [address] [place] [address] Care Team Providers Name Role Phone Unassigned, Provider Primary Care Provider Unavailable Reason for Visit Reason Comments Surgery Questions Encounter Details Date Type Department Care Team Description 05/12/2019 Telephone [facility] Samir Russell MD Surgery Questions [address] [facility] [address] [facility] [address] [place] [address] [place] [address] [phone] (Wo rk) Social History Tobacco Use Types [...] you been seen for this recently?: NA [[facility]ray Setter[facility]t Center: If yes, please include date and provider.] Is it okay to leave detailed message on your voicemail? YES [Tray Setter[facility]Appt Center: If this call is after 3 p.m., communicate to patient: If we are not able to get back to you by the end of the day and your symptoms worsen please contact the Careline] documented in this encounter Plan of Treatment Not on filedocumented as of this encounter Visit Diagnoses Not on filedocumented in this encounter Care Teams Farmer And Grazier Relationship Specialty Start Date End Date Unassigned, Provider PCP - General 08/13/[address] [place] [address] documented as of this encounter
--- OUTSIDE RECORDS SUMMARY | 2021-12-11 11:04 | XMS_ITS | Encounter Summary ---
:1970 Author Organization [employer] [employer] Address [address] [address] Care Team Providers Name Role Phone Unassigned, Provider Primary Care Provider Unavailable Reason for Visit Reason Comments ANKLE PAIN Encounter Details Date Type Department Care Team Description 04/13/2019 Office Visit TRISamir Mcginnis, Pain, joint, ankle CENTER MD and foot, right [address] [facility] [address] [facility] (Primary Dx) [place], [place] [address] [place], [place] [phone] (Wo rk) Social History Tobacco Use Types Packs/Day Years Used Date Smoking Tobacco: Never Assessed Sex Assigned at Date Recorded Not on file documented as of this encounter Progress Notes Smair Freire MD - 04/13/2019 12:00 PM CST NAME: NIMO PRO MR#: [id number] CSN: [id number] AUTHENTICATING CLINICIAN: Samir Freire MD CONFIRM #: [id number] LOC: 711 CLINIC PROGRESS NOTE DATE OF [...] tab. 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
--- OUTSIDE RECORDS SUMMARY | 2021-12-11 11:04 | XMS_ITS | Clinical Summary ---
:1970 Author Organization [employer] [place] [address] Care Team Providers Name Role Phone Kiara Hurley MD Unavailable Maksim Sanford MD Primary Care Provider [phone] Allergies Active Allergy Reactions Severity Noted Date [...] Date Type Specialty Care Team Description 12/11/2021 Travel 12/07/2021 Travel 12/07/2021 Telephone Pan Hsu MD Appointment 12/06/2021 Nurse/Clinic Staff Testing ( HST Only Download) 12/05/2021 Nurse/Clinic Staff Testing ( HST Setup) Only 12/05/2021 Telemedicine [facility] Becky 12/05/2021 Procedure Only Pan Hsu MD Results (H OME SLEEP TEST/) 12/04/2021 Office Visit Maksim Sanford Follow Up MD Doris 12/04/2021 Office Visit Giovanna Medeiros [facility] Intake; KIRSTEN De La Cruz Medication Daniela haynes 12/04/2021 Travel 12/02/2021 Travel 12/01/2021 Telephone Pan Hsu MD Appointment (MEDICAL TECHNOLOGIST MICROBIOLOGY SLEEP APNEA MAC NESTOR) 11/30/2021 Telemedicine Pan [...] D/ EXCLUSION) 11/07/2021 [facility] 11/07/2021 Office Visit Maksim Sanford Diabetes (3 [...] MD Becky 10/18/2021 Office Visit Keri Cuenca Insulator Apprentice Exam MD Becky (perimenopausal . has some [...] Visit Maksim Sanford ER Follow u p (Doris VILLALTA MD 10/01 and 10/08, insomnia, malai se, [...] Name Administration Dates Next Due COVID-19 vaccine ([employer] 01/24/2021 30mcg/0.3mL) PF, MDV Influenza Virus, Unspecified [...] 10 days, have you been in contact Unable to asse ss 12/11/2021 8:02 AM CDT with someone who was confirmed or suspected to [...] Description 12/11/2021 Procedure Only Ottoniel Robles MD [facility]rived [address] [facility] [place] [phone] (Wo rk) 12/19/2021 Orders Only [facility], [place] Commercial Appraiser 12/28/2021 Nurse/Clinic Staff Only 12/29/2021 Nurse/Clinic Staff Only 01/22/2022 Telemedicine Pan Hsu MD [address] [place] [place] [phone] (Wo rk) 01/23/2022 Office Visit Giovanna Medeiros NP [address] [place] [phone] (Wo rk) Health Maintenance Due Date Last Done Comments Hepatitis B series for Diabetes (1 08/02/1990 of 3 - Risk 3-dose series) Pap test for age 21-65 08/02/1992 COVID-19 vaccine series (4 - 03/21/2021 01/24/2021, [...] 07/21/2021 Tetanus booster 10/27/2030 10/27/2020, 06/19/2017, 01/07/2008 Colonoscopy through age 75 12/12/2031 12/11/2021 Pneumococcal series for age 19-64 08/02/2036 02/05/2020, , (3 - PPSV23 or PCV20) 12/23/2013 Tdap Completed 10/27/2020, 01/07/2008 Hepatitis C screening for age Completed 11/01/2021 18-79 Influenza for age 50-64 Completed 12/04/2021, 11/19/2020, 11/04/2019, Additional history exists Procedures Procedure Name Priority Date/Time Associated Diagnosis Comme nts COLONOSCOPY SCREENING Routine 12/11/2021 8:02 AM Screening for colon CDT cancer HOME SLEEP TEST TYPE Routine 12/05/2021 2:06 [...] Signature TSH 3.39 0.35 - 4.94 11/01/2021 [facility] uIU/mL 7:14 PM CDT LABORATORY-CENTR AL LABORATORY Specimen Anatomical Collection Method / Collection Time Recei robert Time (Source) Location / Volume Laterality Blood BLOOD SPECIMEN / Venipuncture / 11/01/2021 7:58 2021 8:00 Unknown Unknown AM CDT AM CDT Narrative [facility] LABORATORY-CENTRAL LABORAT ORY - 11/01/2021 7:14 PM CDT In Adults, TSH values between 5.00 and 10.00 uIU/ml do not necessarily indicate the presence of Hyp othyroidism. Correlation with clinical findings such as presence of goiter and/or Thyroperoxidase (TPO) Antibody ma y be helpful. For more information please refer to ESTEBAN 20 ; 291: [phone]. Maksim Sanford MD CHEMISTRY Performing Organization Address [facility] Phon e Number [facility] [employer] [address] [place] [id number] LABORATORY-CENTRAL 2000 LABORATORY ANTI HCV (11/01/2021 7:58 AM CDT) [facility] Method Time Signature HEPATITIS C Non-Reacti Non-Reacti 11/01/2021 [facility] ANTIBODY ve ve 7:16 PM CDT [...] Sanford MD SEND OUTS Performing Organization Address City/State/ZIP [facility] Phon e Number [facility] [address] [place] [id number] LABORATORY-CENTRAL 2000 LABORATORY HEMOGLOBIN A1C MONITORING (POCT) (11/01/2021 7:58 AM CDT) P athologist Signature HEMOGLOBIN A1C 6.0 <=6.4 % 11/01/2021 [facility] [employer] MONITORING 8:31 AM CDT [place] (POCT[facility]INIC Specimen Anatomical Collection Method / Collection Time Recei robert Time (Source) Location / Volume Laterality Blood BLOOD SPECIMEN / Venipuncture / 11/01/2021 7:58 2021 8:00 Unknown Unknown AM CDT AM CDT Narrative [facility] - 8:31 AM CDT ? (<=6.9%) [...] Organization Address City/State/ZIP Code Phon e Number [facility] [address] [place], [place] [address] [place] ABDOMEN LIMITED RUQ [...] report s are released immediately into your [facility] medical record. ??You may view this [...] provider. If you have questions, please contact [facility] provider. INDICATION: Nausea COMPARISON: CT 09/04/2020 TECHNIQUE: [...] 022 3:34PM (Electronically Signed) Maksim Sanford MD CT HEAD BRAIN WO (10/09/2021 12:43 PM CDT) Anatomical Region Laterality Modality HEAD, BRAIN Computed Tomography Specimen (Source) Anatomical Collection Method Collection Time Re ceived Time Location / / Volume Laterality 10/09/2021 1:33 PM CDT Impressions 10/09/2021 1:[address] Negative head [address]. Please note that all CT scans at this [facility] use dose modulation, iterative reconstruction, and/or weight-based dosing when appropriate to reduce radiation dose to as low as reasonably achievable. Dictated by Evan Love MD @ Oct 09 2 022 ??1:33PM (Electronically Signed) ?? Narrative 10/09/2021 1:33 PM CDT For Patients: ??As a result of the Cures Act, medical imaging exams and procedure report s are released immediately into your [facility] record. ??You may view this report before your referring provider. ??If you have questions, please contact your health care provider. INDICATION: Nausea COMPARISON: none TECHNIQUE: A CT volumetric acquisition was performe d of the brain without IV contrast. Please note that all CT scans at this [facility] use dose modulation, iterative reconstruction, [...] For Patients: As a result of the [facility] Cures Act, medical imaging exams and procedure reports are released immediately into your electronic medical record. You may view this report before your referring provider. If you have questions, please contact yo health care provider. INDICATION: Nausea COMPARISON: none TECHNIQUE: A CT volumetric acquisition was performe d of the brain without IV contrast. Please note that all CT scans at this [facility] use dose modulation, iterative reconstruction, [...] note that all CT scans at this [facility] use dose modulation, iterative reconstruction, and/or weight-based dosing when appropriate to reduce radiation dose to as low as reasonably achievable. Dictated by Evan Love MD @ Oct 09 2 022 1:33PM (Electronically Signed) Maksim Sanford MD CT COVID 19 (10/08/2021 9:34 PM CDT) [facility] Synapse Method Time Signature COVID 19 Not detected Not detected 10/08/2021 [facility] 9:56 PM CDT [facility] LABORATORY Specimen Anatomical Location / Collection Method Collection Chris e Received Time (Source) Laterality / Volume Other SPECIMEN FROM Non-Blood / 10/08/2021 9:34 10/08/2021 9:34 NASOPHARYNGEAL Unknown PM CDT PM CDT STRUCTURE / Unknown Narrative [facility] - 9:56 PM CDT This test [...] Organization Address City/State/ZIP Code Phon e Number [facility] [address] [place] [address] COVID 19 COLLECTION (10/08/2021 9:34 PM CDT) [facility] Synapse Method Time Signature TESTING [facility] 10/08/2021 [facility] Laboratory 9:35 PM CDT [facility] LABORATORY Comment: Specimen submitted to [facility] for testing. Specimen Anatomical Location / Collection Method Collection Chris e Received Time (Source) Laterality / Volume Other SPECIMEN FROM Non-Blood / 10/08/2021 9:34 10/08/2021 9:34 NASOPHARYNGEAL Unknown PM CDT PM CDT STRUCTURE / Unknown Andrew Gaspar MD SEND OUTS Performing Organization Address City/[facility]/ZIP Code Phon e Number [facility] [address] [place] [address] (ABNORMAL) URINALYSIS MICROSCOPIC (10/08/2021 9:25 PM CDT) [facility] gist Method Time Signature RBC 0-2 0-2, None 10/08/2021 [place] Seen /HPF 9:39 PM [facility] LABORATORY WBC 6-10 (A) 0-2, 3-5, 10/08/2021 [place] None Seen 9:39 PM [facility] /HPF LABORATORY BACTERIA Moderate (A) None 10/08/2021 [place] Seen, 9:39 PM [facility] Rare, Few LABORATORY Bacteria/ HPF EPITHELIAL Many (A) None 10/08/2021 [place] CELLS Seen, Few 9:39 PM [facility] Epi/HPF LABORATORY Mucus Present 10/08/2021 [place] 9:39 PM [facility] LABORATORY WHITE CELL Present (A) (none) 10/08/2021 [place] CLUMPS 9:39 PM [facility] LABORATORY Specimen Anatomical Collection Method Collection Time Receive d Time (Source) Location / / Volume Laterality Urine URINE SPECIMEN / Non-Blood / 10/08/2021 9:25 PM 10/08 9:30 Unknown Unknown CDT PM CDT Andrew Gaspar MD URINE Performing Organization Address City/State/ZIP Code Phon e Number [facility] [address] [place] [address] URINE CULTURE (10/08/2021 9:25 PM CDT) athologist Signature CULTURE No growth 10/10/2021 [facility] (<1,000 7:37 AM CDT LABORATORY-CENT CFU/mL) [facility] LABORATORY Specimen Anatomical Collection Method Collection Time Receive d Time (Source) Location / / Volume Laterality Urine URINE SPECIMEN / Non-Blood / 10/08/2021 9:25 PM 10/08 9:30 Unknown Unknown CDT PM CDT Maksim Sanford MD MICROBIOLOGY Performing Organization Address City/State/ZIP Code Phon e Number [facility] [address] [place] [address] LABORATORY-CENTRAL 1999 LABORATORY (ABNORMAL) UA W/ SEDIMENT EXAM REFLEXED PER CRITERIA (10/08/2021 9:25 PM CDT) [facility] Method Time Signature COLOR Yellow Yellow Color 10/08/2021 [place] 9:34 PM [facility] LABORATORY CLARITY Clear Clear 10/08/2021 [place] Clarity 9:34 PM [facility] LABORATORY SPECIFIC 1.010 1.010, 10/08/2021 [place] GRAVITY,URINE 1.015, 9:34 PM [facility] 1.020, 1.025 LABORATORY PH,URINE 6.5 6.0, 7.0, 10/08/2021 [place] 8.0, 5.5, 9:34 PM [facility] 6.5, 7.5, LABORATORY 8.5 UROBILINOGEN, Normal Normal EU/dl 10/08/2021 [place] QUALITATIVE 9:34 PM [facility] LABORATORY PROTEIN, Negative Negative 10/08/2021 [place] URINE mg/dL 9:34 PM [facility] LABORATORY GLUCOSE, Negative Negative 10/08/2021 [place] URINE mg/dL 9:34 PM [facility] LABORATORY KETONES,URINE Negative Negative 10/08/2021 [place] mg/dL 9:34 PM [facility] LABORATORY BILIRUBIN,URI Negative Negative 10/08/2021 [place] NE 9:34 PM [facility] LABORATORY OCCULT Negative Negative 10/08/2021 [place] BLOOD,URINE 9:34 PM [facility] LABORATORY NITRITE Negative Negative 10/08/2021 [place] 9:34 PM [facility] LABORATORY LEUKOCYTE Small (A) Negative 10/08/2021 [place] ESTERASE 9:34 PM [facility] LABORATORY Specimen Anatomical Collection Method Collection Time Receive d Time (Source) Location / / Volume Laterality Urine URINE SPECIMEN / Non-Blood / 10/08/2021 9:25 PM 10/08 9:30 Unknown Unknown CDT PM CDT Andrew Gaspar MD URINE Performing Organization Address City/State/ZIP Code Phon e Number [facility] [address] [place] [address] URINE (10/08/2021 9:25 PM CDT) Analysis Performed At Patho logist Time Signature ,URIN Negative Negative 10/08/2021 [place] E 9:34 PM [facility] LABORATORY Specimen Anatomical Collection Method Collection Time Receive d Time (Source) Location / / Volume Laterality Urine URINE SPECIMEN / Non-Blood / 10/08/2021 9:25 PM 10/08 9:30 Unknown Unknown CDT PM CDT Andrew Gaspar MD URINE Performing Organization Address City/[facility]/ZIP Code Phon e Number [facility] [address] [place] [address] (ABNORMAL) CBC WITH AUTO DIFFERENTIAL (10/08/2021 9:02 PM CDT)Only the most recent of2 resultswithin the time period is included. [facility] gist Method Time Signature WHITE BLOOD 13.0 (H) 4.5 - 10/08/2021 [place] COUNT 11.0 9:17 PM [facility] thou/cu LABORATORY mm RED BLOOD COUNT 4.72 4.00 - 10/08/2021 [place] 5.20 9:17 PM [facility] mil/cu mm LABORATORY HEMOGLOBIN 14.9 12.0 - 10/08/2021 [place] 16.0 g/dL 9:17 PM [facility] LABORATORY HEMATOCRIT 45.1 33.0 - 10/08/2021 [place] 51.0 % 9:17 PM [facility] LABORATORY MCV 96 80 - 100 10/08/2021 [place] fL 9:17 PM [facility] LABORATORY MCH 31.6 26.0 - 10/08/2021 [place] 34.0 pg 9:17 PM [facility] LABORATORY MCHC 33.0 32.0 - 10/08/2021 [place] 36.0 g/dL 9:17 PM [facility] LABORATORY RDW 13.9 11.5 - 10/08/2021 [place] 15.5 % 9:17 PM [facility] LABORATORY PLATELET COUNT 275 140 - 440 10/08/2021 [place] thou/cu 9:17 PM [facility] mm LABORATORY MPV 11.0 6.5 - 10/08/2021 [place] 11.0 fL 9:17 PM [facility] LABORATORY % NEUT 48.3 % 10/08/2021 [place] 9:17 PM [facility] LABORATORY % LYMPH 36.6 % 10/08/2021 [place] 9:17 PM [facility] LABORATORY % MONO 9.6 % 10/08/2021 [place] 9:17 PM [facility] LABORATORY % EOS 4.8 % 10/08/2021 [place] 9:17 PM [facility] LABORATORY % BASO 0.7 % 10/08/2021 [place] 9:17 PM [facility] LABORATORY ABSOLUTE 6.3 1.7 - 7.0 10/08/2021 [place] NEUTROPHILS thou/cu 9:17 PM [facility] mm LABORATORY ABSOLUTE 4.8 (H) 0.9 - 2.9 10/08/2021 [place] LYMPHOCYTES thou/cu 9:17 PM [facility] mm LABORATORY ABSOLUTE 1.3 (H) <0.9 10/08/2021 [place] MONOCYTES thou/cu 9:17 PM [facility] mm LABORATORY ABSOLUTE 0.6 (H) <0.5 10/08/2021 [place] EOSINOPHILS thou/cu 9:17 PM [facility] mm LABORATORY ABSOLUTE 0.1 <0.3 10/08/2021 [place] BASOPHILS thou/cu 9:17 PM [facility] mm LABORATORY Specimen Anatomical Collection Method / Collection Time Recei robert Time (Source) Location / Volume Laterality Blood BLOOD SPECIMEN / Venipuncture / 10/08/2021 9:02 2021 9:05 Unknown Unknown PM CDT PM CDT Andrew Gaspar MD HEMATOLOGY Performing Organization Address City/State/ZIP Code Phon e Number [facility] [address] [place] [address] MAGNESIUM (10/08/2021 9:02 PM CDT) athologist Signature MAGNESIUM 1.8 1.6 - 2.6 10/08/2021 [place] mg/dL 9:27 PM CDT [facility] LABORATORY Specimen Anatomical Collection Method / Collection Time Recei robert Time (Source) Location / Volume Laterality Blood BLOOD SPECIMEN / Venipuncture / 10/08/2021 9:02 2021 9:05 Unknown Unknown PM CDT PM CDT Andrew Gaspar MD CHEMISTRY Performing Organization Address City/[facility]/ZIP Code Phon e Number [facility] [address] [place] [address] LIPASE (10/08/2021 9:02 PM CDT) athologist Signature LIPASE 38.8 8.0 - 78.0 10/08/2021 [place] IU/L 9:28 PM CDT [facility] LABORATORY Specimen Anatomical Collection Method / Collection Time Recei roebrt Time (Source) Location / Volume Laterality Blood BLOOD SPECIMEN / Venipuncture / 10/08/2021 9:02 2021 9:05 Unknown Unknown PM CDT PM CDT Andrew Gaspar MD CHEMISTRY Performing Organization Address City/[facility]/ZIP Code Phon e Number [facility] [address] [place] [address] VITAMIN B12 (10/08/2021 9:02 PM CDT) athologist Signature VITAMIN B12 805 180 - 914 10/16/2021 [email or web address] pg/mL 11:38 AM CDT LABORATORY-[facility] LABORATORY Specimen Anatomical Collection Method / Collection Time Recei robert Time (Source) Location / Volume Laterality Blood BLOOD SPECIMEN / Venipuncture / 10/08/2021 9:02 2021 9:05 Unknown Unknown PM CDT PM CDT David DERAS CHEMISTRY Performing Organization Address City/State/ZIP Code Phon e Number [facility] [address] [place] [address] LABORATORY-CENTRAL 2000 LABORATORY HEPATIC FUNCTION PANEL (10/08/2021 9:02 PM CDT) athologist Signature ALBUMIN 3.9 3.5 - 5.2 10/08/2021 [place] g/dL 9:27 PM [facility] LABORATORY PROTEIN,TOTAL 7.2 6.0 - 8.0 10/08/2021 [place] g/dL 9:27 PM [facility] LABORATORY GLOBULIN 3.3 2.0 - 3.7 10/08/2021 [place] g/dL 9:27 PM [facility] LABORATORY A/G RATIO 1.2 1.0 - 2.0 10/08/2021 [place] 9:27 PM [facility] LABORATORY BILIRUBIN,TOTAL 0.5 0.2 - 1.2 10/08/2021 [place] mg/dL 9:27 PM [facility] LABORATORY BILIRUBIN,DIRECT 0.2 0.1 - 0.5 10/08/2021 [place] mg/dL 9:27 PM [facility] LABORATORY BILIRUBIN,INDIRE 0.3 0.2 - 0.8 10/08/[address] [place] [address] mg/dL 9:27 PM [facility] LABORATORY ALK PHOSPHATASE 73 50 - 136 10/08/2021 [place] IU/L 9:27 PM [facility] LABORATORY ALT (SGPT) 24 8 - 45 10/08/2021 [place] IU/L 9:27 PM [facility] LABORATORY AST (SGOT) 19 2 - 40 10/08/2021 [place] IU/L 9:27 PM [facility] LABORATORY Specimen Anatomical Collection Method / Collection Time Recei robert Time (Source) Location / Volume Laterality Blood BLOOD SPECIMEN / Venipuncture / 10/08/2021 9:02 10/08 9:05 Unknown Unknown PM T CDT Andrew Gaspar MD CHEMISTRY Performing Organization Address City/State/ZIP Code Phon e Number [facility] [address] [place] [address] (ABNORMAL) BASIC METABOLIC PANEL (10/08/2021 9:02 PM T) Analysis Performed At Patho logist Time Signature SODIUM 140 135 - 145 10/08/2021 [place] mmol/L 9:25 PM [facility] LABORATORY POTASSIUM 3.7 3.5 - 5.0 10/08/2021 [place] mmol/L 9:25 PM [facility] LABORATORY CHLORIDE 104 98 - 110 10/08/2021 [place] mmol/L 9:25 PM [facility] LABORATORY CO2,TOTAL 24 21 - 31 10/08/2021 [place] mmol/L 9:25 PM [facility] LABORATORY ANION GAP 12 5 - 18 10/08/2021 [place] 9:25 PM [facility] LABORATORY GLUCOSE 167 (H) 65 - 100 10/08/2021 [place] mg/dL 9:25 PM [facility] LABORATORY CALCIUM 9.4 8.5 - 10.5 10/08/2021 [place] mg/dL 9:25 PM [facility] LABORATORY BUN 16 8 - 25 10/08/2021 [place] mg/dL 9:25 PM [facility] LABORATORY CREATININE 0.82 0.57 - 10/08/2021 [place] 1.11 mg/dL 9:25 PM [facility] LABORATORY BUN/CREAT RATIO 20 10 - 20 10/08/2021 [place] 9:25 PM [facility] LABORATORY eGFR 87 (L) >90 10/08/2021 [place] mL/min/1.7 9:25 PM [facility] 3m2 LABORATORY Comment: As of 2021, [...] Organization Address City/State/ZIP Code Phon e Number [facility] [address] [place] [address] EKG 12 LEAD (10/08/2021 8:47 PM CDT)Only [...] NOW QTc 442 ms BEYOND NOW P [place] 41 degrees BEYOND NOW R [place] -35 degrees BEYOND NOW T [place] 14 degrees BEYOND NOW Specimen Anatomical Collection Method Collection Time Receive d Time (Source) Location / / Volume Laterality 10/08/2021 8:47 PM 5:44 CDT AM CDT Andrew Gaspar MD EKG ORD Performing Organization Address City/[facility]/ZIP Code Phon e Number [place], [place] TSH (10/01/2021 6:46 AM CDT) athologist Signature TSH 2.56 0.35 - 4.94 10/01/2021 [facility] 7[facility]30 AM CDT [facility] LABORATORY Specimen Anatomical Collection Method / Collection Time Recei robert Time (Source) Location / Volume Laterality Blood BLOOD SPECIMEN / Venipuncture / 10/01/2021 6:46 2021 6:49 Unknown Unknown AM CDT AM CDT Narrative [facility] - 7:30 AM CDT In Adults, TSH values between 5.00 and 10.00 uIU/ml do not necessarily indicate the presence of Hyp othyroidism. Correlation with clinical findings such as presence of goiter and/or Thyroperoxidase (TPO) Antibody ma y be helpful. For more information please refer to ESTEBAN 20 04; 291: [phone]. Esa Garnica DO CHEMISTRY Performing Organization Address City/[facility]/ZIP Code Phon e Number [facility] [address] [place] [address] (ABNORMAL) COMP METABOLIC PANEL (10/01/2021 6:46 AM CDT) Patholo gist Method Time Signature SODIUM 142 135 - 145 10/01/2021 [place] mmol/L 7:10 AM CDT [facility] LABORATORY POTASSIUM 4.0 3.5 - 5.0 10/01/2021 [place] mmol/L 7:10 AM [facility] LABORATORY CHLORIDE 107 98 - 110 10/01/2021 [place] mmol/L 7:10 AM [facility] LABORATORY CO2,TOTAL 22 21 - 31 10/01/2021 [place] mmol/L 7:10 AM [facility] LABORATORY ANION GAP 13 5 - 18 10/01/2021 [place] 7:10 AM [facility] LABORATORY GLUCOSE 167 (H) 65 - 100 10/01/2021 [place] mg/dL 7:10 AM [facility] LABORATORY CALCIUM 9.3 8.5 - 10.5 10/01/2021 [place] mg/dL 7:10 AM [facility] LABORATORY BUN 15 8 - 25 10/01/2021 [place] mg/dL 7:10 AM [facility] LABORATORY CREATININE 0.74 0.57 - 10/01/2021 [place] 1.11 mg/dL 7:10 AM [facility] LABORATORY BUN/CREAT RATIO 20 10 - 20 10/01/2021 [place] 7:10 AM [facility] LABORATORY ALBUMIN 3.9 3.5 - 5.2 10/01/2021 [place] g/dL 7:10 AM [facility] LABORATORY PROTEIN,TOTAL 7.1 6.0 - 8.0 10/01/2021 [place] g/dL 7:10 AM [facility] LABORATORY GLOBULIN 3.2 2.0 - 3.7 10/01/2021 [place] g/dL 7:10 AM [facility] LABORATORY A/G RATIO 1.2 1.0 - 2.0 10/01/2021 [place] 7:10 AM [facility] LABORATORY BILIRUBIN,TOTAL 1.0 0.2 - 1.2 10/01/2021 [place] mg/dL 7:10 AM [facility] ALK PHOSPHATASE 61 50 - 136 10/01/2021 [place] IU/L 7:10 AM [facility] ALT (SGPT) 23 8 - 45 10/01/2021 [place] IU/L 7:10 AM [facility] AST (SGOT) 17 2 - 40 10/01/2021 [place] IU/L 7:10 AM [facility] eGFR >90 >90 10/01/2021 [place] mL/min/1.7 7:10 AM [facility] 3m2 LABORATORY Comment: As of 2021, [...] Unknown Unknown AM CDT AM CDT Esa Garnica DO CHEMISTRY Performing Organization Address City/[facility]/ZIP Code Phon e [facility] [place] [address] [place] [address] (ABNORMAL) GLUCOSE METER (10/01/2021 6:26 AM CDT) athologist Signature GLUCOSE METER 180 (H) 65 - 100 10/01/2021 [place] mg/dL 6:30 AM T [facility] Specimen Anatomical Collection Method Collection Time Receive d Time (Source) Location / / Volume Laterality Blood BLOOD SPECIMEN / 10/01/2021 6:26 AM 10/01 6:30 Unknown CDT AM CDT Esa Garnica DO CHEMISTRY Performing Organization Address City/[facility]/ZIP Code Phon e Number [facility] [address] [place] [address] XR MAMMO BILAT SCREENING (09/12/2021 10:47 AM [...] provider. If you have questions, please contact [facility] care provider. XR MAMMO BILAT SCREENING [[id number]] CLINICAL HISTORY: ??This is an asymptoma tic [...] ID Effective Dates Phone Addre ss Type [employer] [id number] 2011-Present [address] [place] [address] MEDICA MEDICA CHOICE [id number] 2020-Present [address] [address] [place] [address] Torin Pro Personal/Family Spouse 1970 [phone] (Home) W [phone] Debora [place] (Work) [id number] [address] [place] [facility] [employer] Employer 02/26/2000 [facility] (Home) [id number] [address] [address] [place] [address] Advance Directives Latest Code Status on File Code Status Date Activated Date Inactivated Comments Full Code 01/06/2019 11:51 AM 01/06/2019 5:58 PM Code Status Discussion: Discussed Care Teams Building Carpenter Helper Relationship Specialty Start Date End Date Maksim Sanford MD PCP - General Family Practice 12/07/20 [address] [place] [address] Kiara Hurley MD Family Practice 07/23/13
--- OUTSIDE RECORDS SUMMARY | 2021-12-11 11:04 | XMS_ITS | Encounter Summary ---
:1970 Author Organization [employer] Address [address], [place] [address] Care Team Providers Name Role Phone Unassigned, Provider Primary Care Provider Unavailable Reason for Visit Reason Comments ANKLE PAIN right achilles Encounter Details Date Type Department Care Team Description 08/20/2019 Office Visit [facility] Samir Freire Achill tendon pain CENTER (Primary Dx) [address] [place] [address] [place], [place] [phone] (Wo rk) Social History Tobacco Use Types Packs/Day Years Used Date Smoking Tobacco: Never Assessed Sex Assigned at Date Recorded Not on file documented as of this encounter Patient Instructions Patient InstructionsStAngy nolan - 08/20/2019 11:[address] Samir Freire MD Orthopaedic Surgeon/Foot & Ankle Specialist Marine Operations Coordinator, [facility] Medication Requests: Prescriptions are not filled on weekends or on weekdays after 3:00 PM documented in this encounter Progress Notes Samir Freire MD - 08/20/2019 12:00 PM CDT NAME: NIMO PRO MR#: [id number] CSN: [id number] AUTHENTICATING CLINICIAN: Samir Freire MD CONFIRM #: [id number] LOC: 711 CLINIC PROGRESS NOTE DATE OF [...] TT: 15 minutes. FAP:MEDQ C: R:08/20/19 11:00 CONFIRM#:[id number] documented in this encounter Plan of Treatment Not on filedocumented as of this encounter Visit Diagnoses Diagnosis Achilles tendon pain - Primary Achilles bursitis or tendinitis documented in this encounter Care Teams Elevator Constructor Relationship Specialty Start Date End Date Unassigned, Provider PCP - General 08/13/[address] [place] [phone] documented as of this encounter
--- OUTSIDE RECORDS SUMMARY | 2021-12-11 11:04 | XMS_ITS | Encounter Summary ---
:1970 Author Organization [facility] Address [address] [address] Care Team Providers Name Role Phone Unassigned, Provider Primary Care Provider Unavailable Encounter Details Date Type Department Care Team Description 04/08/2013 Orders Only HP Claims MD Ravin Security Contact Bill [address] [place] [address] Mailstop [id number] [phone] (Wo rk) Social History Tobacco Use Types Packs/Day Years Used Date Smoking Tobacco: Never Assessed Sex Assigned at Date Recorded Not on file documented as of this encounter Plan of Treatment Not on filedocumented as of this encounter Visit Diagnoses Not on filedocumented in this encounter 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
--- OUTSIDE RECORDS SUMMARY | 2021-12-11 11:04 | XMS_ITS | Clinical Summary ---
:1970 Author Organization [facility] Address [address] [address] Care Team Providers Name Role Phone Unassigned, [...] for each transition of care or referral. 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
== END 2021-12-11 10:20 | disposition home or self-care (01) ==
LOC: OP CLINIC 10:21
PROVIDERS: PCP Family Medicine; Visit Provider Internal Medicine Gastroenterology
DX: Z12.11 Encounter for screening for malignant neoplasm of colon (principal); K63.5 Polyp of colon; K57.30 Diverticulosis of large intestine without perforation or abscess without bleeding
CPT/HCPCS: 45380; 45385; 88305; J2250; J3010

== ENCOUNTER 2022-03-13 09:54 | Outpatient (CLI) | payer OTHER, SELFPAY | END 2022-03-13 09:55 | disposition home or self-care (01) | LOC: AMB 03-21 19:38 | PROVIDERS: PCP Family Medicine; Visit Provider Family Medicine | DX: R45.851 Suicidal ideations (principal); F32.9 Major depressive disorder, single episode, unspecified | CPT/HCPCS: A0425; A0429 ==